=== PATIENT | female | born 1955 | race Caucasian/White ===

== ENCOUNTER → 2018-07-02 | Outpatient (CLI) | payer OTHER ==
[~2018-07-02] MED LIST: BUDESONIDE EC3 MG PO; MACROBID 100 M100 MG PO; PENTASA500 MG PO; QUESTRAN PACKET4 GM PO; RECLAST 55 MG/100 M; TRICOR145 MG PO
== END ==
LOC: RAD 10:34
PROVIDERS: ATTEND Internal Medicine Medical Oncology
DX: R22.42 Localized swelling, mass and lump, left lower limb (principal); R10.2 Pelvic and perineal pain; I82.412 Acute embolism and thrombosis of left femoral vein; I82.432 Acute embolism and thrombosis of left popliteal vein; I82.442 Acute embolism and thrombosis of left tibial vein
CPT/HCPCS: 93971

== ENCOUNTER 2018-07-18 21:10 | Emergency (ER) | payer OTHER ==
[~2018-07-18] VITALS: Ht 165.1 cm; Wt 70.3 kg
--- OUTSIDE RECORDS SUMMARY | 2018-07-18 21:13 | XMS REPORT | Clinical Summary ---
Author Author [facility] Organization [facility] Address Unknown Phone Unavailable Care Team Providers Care Information Assurance Analyst Name Role Phone Asked, No Pcp PCP Unavailable Allergies No Known Allergies Medications End Date Status Medication Sig Dispensed Refills Start Date Active fenofibrate (TRICOR) 145 Take 145 mg 0 MG tablet by mouth daily. 07/18/2018 Active ondansetron ODT (ZOFRAN Take 1 tablet 20 tablet 0 ODT) 4 MG disintegrating (4 mg total) 9 tablet by mouth every 8 (eight) hours as needed for nausea for up to 30 days. 06/25/2018 amoxicillin-pot Take 1 tablet 14 tablet 0 clavulanate (AUGMENTIN) by mouth 9 875-125 mg per tablet every 12 (twelve) hours for 7 days. 06/25/2018 dexamethasone (DECADRON) Take 1 tablet 14 tablet 0 4 MG tablet (4 mg total) 9 by mouth 2 (two) times a day with meals for 7 days. 06/25/2018 metroNIDAZOLE (FLAGYL) Take 1 tablet 21 tablet 0 500 MG tablet (500 mg 9 total) by mouth 3 (three) times a day for 7 days. 06/23/2018 acetaminophen-codeine Take 1-2 15 tablet 0 (TYLENOL WITH CODEINE #3) tablets by 9 300-30 mg per tablet mouth every 6 (six) hours as needed for mild pain for up to 5 days. Active Problems Not on file Encounters Care Team Description Date Type Specialty Clemente Singleton DO Crohn's disease of colon without complication (HCC) (Primary Dx) 06/18/2018 Emergency Emergency Medicine after 07/17/2017 Social History Date Tobacco Use Types Packs/Day Years Used Never Smoker Smokeless Tobacco: Never Used Alcohol Use Drinks/Week oz/Week Comments No Alcohol Habits Answer Date Recorded How often do you have a drink containing alcohol? Never 06/18/2018 How many drinks containing alcohol do you have on Not asked a typical day when you are drinking? How often do you have six or more drinks on one Not asked occasion? Sex Assigned at Date Recorded Not on file Industry Job Start Date Occupation Not on file Not on file Not on file Travel End Travel History Travel Start No recent travel history available. Last Filed Vital Signs Time Taken Vital Sign Reading 06/18/2018 5:07 AM CDT Blood Pressure 103/56 06/18/2018 5:07 AM CDT Pulse 74 06/18/2018 2:47 AM CDT Temperature 36.4 C (97.6 F) 06/18/2018 5:07 AM CDT Respiratory Rate 20 06/18/2018 5:07 AM CDT Oxygen Saturation 96% - Inhaled Oxygen - Concentration - Weight - 06/18/2018 2:47 AM CDT Height 170.2 cm (5' 7") - Body Mass Index - Plan of Treatment Health Maintenance Due Date Last Done Comments CERVICAL CANCER SCREENING 1978 BREAST CANCER SCREENING 08/11/2007 COLON CANCER SCREENING 08/11/2007 SHINGLES VACCINES (#1) 08/11/2007 INFLUENZA VACCINE 11/06/2018 Procedures Comments Procedure Name Priority Date/Time Associated Diagnosis CT ABDOMEN PELVIS W STAT 06/18/2018 CONTRAST 6:28 AM CDT ESTIMATED GFR STAT 06/18/2018 4:14 AM CDT CBC WITH PLATELET AND STAT 06/18/2018 DIFFERENTIAL 4:14 AM CDT LIPASE LEVEL STAT 06/18/2018 4:14 AM CDT LACTIC ACID LEVEL, SEPSIS STAT 06/18/2018 - NOW AND REPEAT 2X EVERY 4:14 AM CDT 3 HOURS COMPREHENSIVE METABOLIC STAT 06/18/2018 PANEL 4:14 AM CDT after 07/17/2017 Results * CT Abdomen Pelvis W Contrast (06/18/2018 6:28 AM CDT) Narrative Performed At EXAMINATION:CT ABDOMEN PELVIS W CONTRAST [facility] CLINICAL HISTORY: 62 yearsFemale epigastric abd painvomitingh o Crohn's TECHNIQUE: Multiple axial images of the abdomen and pelvis were obtained following intravenous administration of iodinated contrast. Sagittal and coronal computerized reformatted images were also obtained. CT imaging was performed with iterative reconstruction techniques and/or automated exposure control to reduce radiation dose. COMPARISON:None. IMPRESSION: LUNG BASES: Minimal dependent bibasilar atelectatic changes are present. There are no pleural effusions. ABDOMEN: Liver: No focal abnormality. Gallbladder/Biliary: Status post cholecystectomy. No evidence of intra or extrahepatic biliary ductal dilatation. Spleen: The spleen is not enlarged. Pancreas: The pancreas is unremarkable. Adrenal Glands: The adrenal glands are unremarkable. Kidneys: The kidneys are unremarkable. No mass, hydronephrosis or calculi. Vascular: The abdominal aorta is normal in caliber. The right hepatic artery is replaced to the SMA. Nodes: No enlarged retroperitoneal or mesenteric lymphadenopathy. Bowel: There are a couple of short segments of mucosal hyperenhancement involving the terminal ileum with submucosal edema resulting in a partial small bowel obstruction. The colon is relatively decompressed and without any focal hyperenhancement. A few scattered colonic diverticula are present. Ascites/fluid collections: There is a tiny amount of free fluid in the pelvic cul-de-sac.. PELVIS: There is no evidence of pelvic mass or pelvic lymphadenopathy. The urinary bladder is unremarkable. MUSCULOSKELETAL: No suspicious osseous lesions. SUMMARY: 1.Focal short segment mucosal hyperenhancement and submucosal edema involving the terminal ileum resulting in partial small bowel obstruction consistent with active Crohn's disease. 2.Status post cholecystectomy. [id number] Procedure Note [facility], Radiology Results Incoming - 06/18/2018 6:42 AM CDT EXAMINATION: CT ABDOMEN PELVIS W CONTRAST CLINICAL HISTORY: 62 yearsFemale epigastric abd pain vomiting h o Crohn's TECHNIQUE: Multiple axial images of the abdomen and pelvis were obtained following intravenous administration of iodinated contrast. Sagittal and coronal computerized reformatted images were also obtained. CT imaging was performed with iterative reconstruction techniques and/or automated exposure control to reduce radiation dose. COMPARISON: None. IMPRESSION: LUNG BASES: Minimal dependent bibasilar atelectatic changes are present. There are no pleural effusions. ABDOMEN: Liver: No focal abnormality. Gallbladder/Biliary: Status post cholecystectomy. No evidence of intra or extrahepatic biliary ductal dilatation. Spleen: The spleen is not enlarged. Pancreas: The pancreas is unremarkable. Adrenal Glands: The adrenal glands are unremarkable. Kidneys: The kidneys are unremarkable. No mass, hydronephrosis or calculi. Vascular: The abdominal aorta is normal in caliber. The right hepatic artery is replaced to the SMA. Nodes: No enlarged retroperitoneal or mesenteric lymphadenopathy. Bowel: There are a couple of short segments of mucosal hyperenhancement involving the terminal ileum with submucosal edema resulting in a partial small bowel obstruction. The colon is relatively decompressed and without any focal hyperenhancement. A few scattered colonic diverticula are present. Ascites/fluid collections: There is a tiny amount of free fluid in the pelvic cul-de-sac.. PELVIS: There is no evidence of pelvic mass or pelvic lymphadenopathy. The urinary bladder is unremarkable. MUSCULOSKELETAL: No suspicious osseous lesions. SUMMARY: 1. Focal short segment mucosal hyperenhancement and submucosal edema involving the terminal ileum resulting in partial small bowel obstruction consistent with active Crohn's disease. 2. Status post cholecystectomy. [id number] Performing Organization Address [facility] [place] [address] * Estimated GFR (06/18/2018 4:14 AM CDT) Estimated GFR >=90 mL/min/1.73 m2 [facility] Comment: HOSPITAL CatergoryUnitsInte rpretation G1 >=90 Normal or high G2 60-89Mildly decreased [id number] Mildly to moderately decreased [id number] Moderately to severely decreased G4 15-29Severely decreased G5 <15Kidney failure The eGFR was calculated using the Chronic Kidney Disease Epidemiology Collaboration (CKD-EPI) equation. Interpretation is based on recommendations of the National Kidney Foundation-Kidney Disease Outcomes Quality Initiative (NKF-KDOQI) published in 2014. Specimen Plasma specimen Performing Organization Address [facility] [place] [address] PATHOLOGY AND GENOMIC MEDICINE [address] * Lactic acid level, SEPSIS - Now and repeat 2x every 3 hours (06/18/2018 4:14 AM CDT) Lactic acid 1.1 0.5 - 2.2 mmol/L [facility] Specimen Plasma specimen Performing Organization Address [facility] Phone Number [address] [address] PATHOLOGY AND GENOMIC MEDICINE [address] * CBC with platelet and differential (06/18/2018 4:14 AM CDT) WBC 9.49 4.50 - 11.00 k/uL [facility] RBC 4.47 4.20 - 5.50 m/uL [facility] HGB 12.9 12.0 - 16.0 g/dL [facility] HCT 40.9 37.0 - 47.0 % [facility] MCV 91.5 82.0 - 100.0 fL [facility] MCH 28.9 27.0 - 34.0 pg [facility] MCHC 31.5 31.0 - 37.0 g/dL [facility] RDW - SD 50.6 37.0 - 55.0 fL [facility] MPV 9.8 8.8 - 13.2 fL [facility] Platelet count 419 (H) 150 - 400 k/uL [facility] Nucleated RBC 0.00 /100 WBC [facility] Neutrophils 82.0 (H) 39.0 - 69.0 % [facility] Lymphocytes 12.4 (L) 25.0 - 45.0 % [facility] Monocytes 4.7 0.0 - 10.0 % [facility] Eosinophils 0.3 0.0 - 5.0 % [facility] Basophils 0.3 0.0 - 1.0 % [facility] Immature granulocytes 0.3Comment: "Immature 0.0 - 1.0 % [facility] granulocytes" (promyelocytes, HOSPITAL myelocytes, metamyelocytes) Specimen Blood Performing Organization Address City/[facility]/Zipcode Phone Number [place] [address] PATHOLOGY AND GENOMIC MEDICINE [address] * Lipase level (06/18/2018 4:14 AM CDT) Lipase 33 13 - 60 U/L [facility] Specimen Plasma specimen Performing Organization Address City/[facility]/[place] [address] PATHOLOGY AND GENOMIC MEDICINE [address] * Comprehensive metabolic panel (06/18/2018 4:14 AM CDT) Sodium 141 135 - 148 mEq/L [facility] Potassium 3.6 3.5 - 5.0 mEq/L [facility] Chloride 100 98 - 112 mEq/L [facility] CO2 26 24 - 31 mEq/L [facility] Anion gap 15@ANIO 7 - 15 mEq/L [facility] BUN 11 8 - 23 mg/dL [facility] Creatinine 0.57 0.50 - 0.90 mg/dL [facility] Glucose 113 (H) 65 - 99 mg/dL [facility] Calcium 9.9 8.8 - 10.2 mg/dL [facility] Protein 7.6 6.3 - 8.3 g/dL [facility] Comment: HOSPITAL [place] 4.6-7.0 g/dL 1 week 4.4-7.6 g/dL 7 months-1year 5.1-7.3 g/dL 1-2 years5.6-7 .5 g/dL >3 years6.0-8 .0 g/dL 18-150 6.3-8.3 g/dL Albumin 4.2 3.5 - 5.0 g/dL [facility] A/G ratio 1.2 0.7 - 3.8 [facility] Alkaline phosphatase 44 35 - 104 U/L [facility] AST 23 10 - 35 U/L [facility] ALT 12 5 - 50 U/L [facility] Total bilirubin 0.3 0.0 - 1.2 mg/dL [facility] Specimen Plasma specimen Performing Organization Address City/State/Zipcode Phone Number [facility] [address] [place] [address] PATHOLOGY AND [place] [address] HOSPITAL after 07/17/2017 Insurance Payer Benefit Subscriber ID Type Phone Address Plan / Group AETNA AETNA xxxxxxxxxx HMO HMO,POS,EP O, MC/EC Advance Directives Patient has advance care planning documents on file. For more information, pleas e contact: Gabo Bae [address] [facility] [place] [address]
--- OUTSIDE RECORDS SUMMARY | 2018-07-18 21:14 | XMS REPORT ---
Author Author [facility] Address Unknown Phone Unavailable Care Team Providers Care Orchid Hand Name Role Phone JENN NEVES Unavailable Unavailable Davy OLIVEIRA Unavailable Unavailable Payers Payer Name Policy Type Policy Number Effective Date Expiration Date Problems This patient has no known problems. Allergies, Adverse Reactions, Alerts Allergy Name Allergy Type Status Severity Reaction(s) Onset Date Inactive Date Treating Clinician Comments IODINE CONTRAST DA Active U 2004-09-12 00:00:00 No Known Drug Allergies DA Active U 2004-09-12 00:00:00 No Known Food Allergies DA Active U 2004-09-12 00:00:00 No Known Other Allergies DA Active U 2004-09-12 00:00:00 Medications This patient has no known medications. Results Test Description Test Time Test Comments Text Results Atomic Results Result Comments TISSUE EXAM 2018-04-04 07:25:00 Surgical Pathology Report Case: [id number] Authorizing Provider: Juanjose Neves, Collected: 04/03/2018 0813 Ordering Location: [facility] PERIOPERATIVE Received: 04/03/2018 0903 SERVICES Pathologist: Marisa Mendenhall MD Specimen: Gallbladder A. GALLBLADDER, CHOLECYSTECTOMY: - CHRONIC CHOLECYSTITIS WITH CHOLELITHIASIS - NEGATIVE FOR DYSPLASIA OR MALIGNANCY Signing Pathologist Direct Phone Line: [phone] signed by Marisa Mendenhall MD on 04/04/2018 at 7:25 [id number] of gallbladder without cholecystitis without obstruction.A. Gallbladder.The case was received in one part labeled with the patient's name, Shellie Fischer, date of 1955 and accession number [id number] which corresponds with the accompanying requisition slip. Received fresh without fixative and labeled with the patient's information and "A gallbladder" is a 7.5 x 3.0 x 1.0 cm previously opened lemons-pink to lemons-purple gallbladder with average wall thickness of 0.2 cm. The gallbladder mucosa is velvety and green with yellow stippling. One 1.0 x 0.5 x 0.3 cm green-black spiculated calculus is identified. The cystic duct does not appear obstructed. No lesions or masses are found within the gallbladder. Industrial Tech Instructor sections are submitted in cassettes A1 and A2. The cystic duct margin is inked in black and submitted in cassette A2. SC/bcPerformed. HEMOGLOBIN-STAT LAB 2018-04-03 07:06:00 HEMOGLOBIN (CHRISTINAAKER) (test gofk=[id number]) 12.9 g/dL 12.0-15.0 Please obtain in preopFL, UGI, AIR CONTRAST, WITH SMALL [id number] 16:29:00Reason for Exam:->Crohns DiseaseReason for Exam:->RUQ ABD PainFINAL REPORT History: Crohn's disease Comparison: None Di scussion : A supervisor steno pool image was obtained prior to the procedure. There is a small- moderate amount of colonic stool. Effervescent air crystals as well as thin and thick liquid barium were given to the patient to swallow and the patient swallow ed without any difficulty. Multiple spot images of the esophagus, stomach and du odenum were obtained. There are no esophageal diverticula, ulcerations or masses . There was evidence of gastroesophageal reflux. The stomach is without masses, ulceration or diverticula. The duodenal bulb is within normal limits. There was a transit time of approximately 20 minutes into the large bowel from the small i ntestine. The patient did have an area of significant stricturing identified trino roximately 4 cm in length at the neoterminal ileum. There is a small diverticulu m arising at the level of the stricture. There is no significant small bowel dis tention The total fluoroscopy time was 6.2 minutes. A total of 110 static images were acquired. Impression: 1. Findings consistent with gastroesophageal reflux. 2. Persistent stricture at the neoterminal ileum measuring approximately 4.0 cm in length. There is no evidence of associated small bowel distention/obstructio n. There is a new small outpouching arising from the area of stricturing, possib ly representing a diverticulum. 3. Relatively rapid transit time through the sma ll intestine, a nonspecific finding. Signed: Abner Kooort Verified Date /Time: 05/15/2017 16:29:00 Reading Location: [address] Radiology Reading Ro om U/S, ABDOMINAL, [id number] 09:15:00Reason for Exam:->RUQ Abd painReason for Exam:->Chrons diseaseFINAL REPORT HISTORY : Right upper quadrant abdominal pain COMPARISON : None COMMENT : Complete ultrasound examination of the abdomen was performed. The liver is homogeneously hyperechoic in echo-texture without evidence of a focal mass. There is cholelithiasis. There is no gallbladder wall thickening, pericholecystic fluid or gallbladder sludge. The biliary tract is within normal limits with the common bile duct measuring 4 mm in maximum diameter. The visualized portions of the pancreas are within normal limits. The spleen is normal in size and echo-texture measuring 8.4 cm. The right kidney measures 9.7 x 4.7 x 3.9 cm and the left kidney 11.8 x 5.8 x 4.6 cm in maximum size. There is no evidence of cysts, masses, stones or hydronephrosis. The portal vein measures to a maximum of 1.2 cm in diameter. There is no ascites or pleural effusion. The visualized inferior vena cava, hepatic veins and abdominal aorta are within normal limits. The maximum diameter of the abdominal aorta is 2.4 cm. IMPRESSION : 1. Cholelithiasis. 2. Hepatic steatosis. 3. Slightly small sized right kidney. Signed: Abner Koo MDReport Verified Date/Time: 05/15/2017 09:15:36 Reading Location: [address] Radiology Reading Room UE [id number] 14:14:00Surgical Pathology Report Case: [id number] Authorizing Provider: Maicol Oliveira MD Collected: 05/03/2017 1147 Ordering Location: [facility] Endoscopy Received: 05/03/2017 1357 Services Pathologist: Candie Martinez MD Specimen: Colon Biopsy, Random, RANDOM BX- HISTORY OF CROHN'S DISEASE, R/O DYSPLASIA COLON, RANDOM, BIOPSY: - COLONIC MUCOSA WITH NO SIGNIFICANT PATHOLOGIC ALTERATION - NEGATIVE FOR DYSPLASIA AND MALIGNANCY Signing Pathologist Direct Phone Line: [phone] signed by Candie Martinez MD on 05/06/2017 at 2:14 [id number]'s disease with complications, rule out dysplasiaRandom colon biopsyThe specimen is received in a formalin-filled container and labeled with the patient's information and labeled "random colon biopsy" and consists of multiple fragments of lemons tissue ranging from 0.1 to 0.3 cm, submitted entirely A1. CG/pl Sections show colonic mucosa with preserved crypt architecture. No increase in acute inflammatory cells are seen. No granulomas, viral inclusions or parasites are seen. No dysp lasia or malignancy is identified. [facility], Department of Pathology, [address] [place] [id number], [facility], Department of Pathology, [address] [place] [address], [facility], Department of Pathology, [address] [place] [address],
--- OUTSIDE RECORDS SUMMARY | 2018-07-18 21:14 | XMS REPORT | Clinical Summary ---
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 Active cholestyramine (QUESTRAN) Take 1 packet 0 4 gram PwPk packet by mouth 2 (two) times daily with breakfast and dinner. Active omeprazole (PRILOSEC) 40 Take 40 mg by 0 MG capsule mouth daily. Active FENOFIBRATE Take 145 mg 0 NANOCRYSTALLIZED (TRICOR by mouth ORAL) daily . Active CALCIUM CARBONATE/VITAMIN Take by mouth 0 D3 (CALCIUM 600 + D,3, 2 (two) times ORAL) daily. Active Missing or Non-Formulary Iron infusion 0 Medication weekly x 4 doses. Active budesonide (ENTOCORT EC) Take 6 mg by 0 3 mg 24 hr capsule mouth every morning. 04/10/2018 ondansetron (ZOFRAN-ODT) Take 1 tablet 5 tablet 1 4 MG disintegrating (4 mg total) 8 tablet by mouth every 8 (eight) hours as needed for Nausea for up to 7 days. 04/10/2018 HYDROcodone-acetaminophen Take 1 tablet 30 tablet 0 (NORCO) 5-325 mg per by mouth 8 tablet every 6 (six) hours as needed for Pain for up to 7 days. Max Daily Amount: 4 tablets Active Problems Problem Noted Date Cholelithiasis 04/03/2018 Encounters Care Team Description Date Type Specialty Tiara Kang 04/09/2018 Orders Only Juanjose Neves MD LAPAROSCOPY,CHOLECYSTECTOMY 04/03/2018 Surgery Natanael Berger MD 04/03/2018 Anesthesia Event Juanjose Neves MD Calculus of gallbladder without cholecystitis without obstruction (Primary Dx) 04/03/2018 Hospital Encounter Resource, Oq[facility] Preadmit Phone 03/18/2018 Hospital Pre-Admission Testing Encounter Tiara Kang 02/12/2018 Orders Only after 07/17/2017 Social History Date Tobacco Use Types Packs/Day Years Used Never Smoker Smokeless Tobacco: Never Used Alcohol Use Drinks/Week oz/Week Comments Yes rare Sex Assigned at Date Recorded Not on file Industry Job Start Date Occupation Not on file Not on file Not on file Travel End Travel History Travel Start No recent travel history available. Last Filed Vital Signs Time Taken Vital Sign Reading 04/03/2018 12:50 PM [employer] Blood Pressure 102/57 04/03/2018 12:50 PM [employer] Pulse 74 04/03/2018 12:50 PM [employer] Temperature 36.1 C (97 F) 04/03/2018 12:50 PM [employer] Respiratory Rate 18 04/03/2018 12:50 PM [employer] Oxygen Saturation 97% - Inhaled Oxygen - Concentration 04/03/2018 6:18 AM [employer] Weight 61.1 kg (134 lb 11.2 oz) 04/03/2018 6:18 AM [employer] Height 170.2 cm (5' 7") 04/03/2018 6:18 AM [employer] Body Mass Index 21.1 Plan of Treatment Not on file Procedures Comments Procedure Name Priority Date/Time Associated Diagnosis TISSUE EXAM AP Routine 04/03/2018 8:13 AM [employer] LAPAROSCOPY,CHOLECYSTECTO 04/03/2018 Calculus of gallbladder MY 7:30 AM [employer] without cholecystitis without obstruction HEMOGLOBIN-STAT LAB Routine 04/03/2018 6:40 AM [employer] after 07/17/2017 Results * Tissue Exam (04/03/2018 8:13 AM [employer]) Case Report Surgical Pathology [facility] Case: [id number] Authorizing Provider:Juanjose Neves, Collected: 04/03/201813 Ordering Location: [facility] PERIOPERATIVE Received: 04/03/2018 0903 SERVICES Pathologist: Marisa Mendenhall MD Specimen:Gallbladder DIAGNOSIS A. GALLBLADDER, [facility] CHOLECYSTECTOMY: [facility] - CHRONIC CHOLECYSTITIS WITH CHOLELITHIASIS - NEGATIVE FOR DYSPLASIA OR MALIGNANCY Signing Pathologist Direct Phone Line: [phone] CPT Code(s) [address] [facility] CLINICAL HISTORY Calculus of gallbladder [facility] without cholecystitis without [facility] obstruction. SPECIMEN SOURCE A. Gallbladder. [facility] GROSS DESCRIPTION The case was received in one [facility] part labeled with the [facility] patient's name, Shellie Fischer, date of 1955 and accession number [id number] which corresponds with the accompanying requisition slip. [...] or masses are found within the gallbladder. Board Stacker sections are submitted in cassettes A1 and A2. The cystic duct margin is inked in black and submitted in cassette A2. SC/bc MICROSCOPIC DESCRIPTION Performed. [facility] Specimen Tissue - Gallbladder Performing Organization Address City/[facility] Phone Number [facility] [address] [place] [address] MEDICAL CENTER * Hemoglobin-Stat Lab (04/03/2018 6:40 AM [employer]) Hemoglobin 12.9 12.0 - 15.0 g/dL [facility] Specimen Blood, Arterial Narrative Performed At Please obtain in preop [facility] Performing Organization Address City/State/Zipcode Phone Number [facility] [address] [place] [address] [facility] after 07/17/2017 Insurance Payer Benefit Subscriber ID Type Phone Address Plan / Group [employer] - [employer] C[employer] AET[employer] HMO xxxxxxxxxx HMO/POS POS QPOS Advance Directives For more information, please contact: [facility] [address] [place] [address] Date Inactivated Comments Code Status Date Activated Full Code 04/03/2018 6:27 AM This code status was determined by: Patient
--- NOTE | 2018-07-18 21:59 | Diagnostic Imaging Report ---
EXAMINATION: CHEST SINGLE (PORTABLE) INDICATION: Blood clot 2 weeks ago. Right upper chest pain. Left leg blood clot. COMPARISON: None FINDINGS: AP view TUBES and LINES: None. LUNGS: Lungs are well inflated. Lungs are clear. There is no evidence of pneumonia or pulmonary edema. PLEURA: No pleural effusion or pneumothorax. HEART AND MEDIASTINUM: The cardiomediastinal silhouette is unremarkable. BONES AND SOFT TISSUES: No acute osseous lesion. Soft tissues are unremarkable. UPPER ABDOMEN: No free air under the diaphragm. IMPRESSION: No acute thoracic abnormality. Signed by: Dr. Shahriar Martin M.D. on 07/18/2018 9:56 PM
[2018-07-18 22:45] LABS: BASOPHILS % 0.5 % (0.0-1.0); EOSINOPHILS # (AUTO) 0.2 (0.0-0.4); EOSINOPHILS % 2.4 % (0.0-6.0); HEMATOCRIT 37.3 % (34.2-44.1); HEMOGLOBIN 11.8 g/dL (12.0-16.0); LYMPHOCYTES # (AUTO) 2.4 (1.0-3.2); LYMPHOCYTES % 30.1 % (18.0-39.1); MEAN CORPUSCULAR HEMOGLOBIN 29.2 pg (28-32); MEAN CORPUSCULAR HGB CONC 31.6 g/dL (31-35); MEAN CORPUSCULAR VOLUME 92.3 fL (81-99); MONOCYTES # (AUTO) 0.8 (0.2-0.8); MONOCYTES % 9.7 % (4.4-11.3); NEUTROPHILS # (AUTO) 4.4 (2.1-6.9); NEUTROPHILS % 54.9 % (38.7-80.0); PLATELET COUNT 415 x10e3/uL (140-360); RED BLOOD COUNT 4.04 x10e6/uL (3.6-5.1); RED CELL DISTRIBUTION WIDTH 15.3 % (11.7-14.4)
[2018-07-18 22:48] LABS: BILIRUBIN,URINE NEGATIVE (NEGATIVE); CLARITY,URINE CLEAR (CLEAR); COLOR,URINE YELLOW (YELLOW); KETONES,URINE NEGATIVE (NEGATIVE); LEUKOCYTE ESTERASE ,URINE NEGATIVE (NEGATIVE); NITRITE,URINE NEGATIVE (NEGATIVE); PROTEIN,URINE DIPSTICK NEGATIVE (NEGATIVE); URINE UROBILINOGEN 0.2 mg/dL (0.2 - 1)
[2018-07-18 22:58] LABS: BACTERIA,URINE FEW /HPF; EPITHELIAL CELLS,URINE FEW /LPF; INR 0.82; PARTIAL THROMBOPLASTIN TIME 24.9 seconds (23.8-35.5); PROTHROMBIN TIME 11.8 seconds (11.9-14.5); RBC,URINE 0-5 /HPF (0-5); WBC,URINE (MAN) 0-5 /HPF (0-5)
[2018-07-18 23:09] LABS: ALANINE AMINOTRANSFERASE 10 IU/L (0-55); ALBUMIN 3.1 g/dL (3.5-5.0); ALBUMIN/GLOBULIN RATIO 1.1 (0.8-2.0); ALKALINE PHOSPHATASE 32 IU/L (40-150); ANION GAP 10.8 mmol/L (8-16); BLOOD UREA NITROGEN 11 mg/dL (7-26); BUN/CREATININE RATIO 20 (6-25); CALCIUM 8.9 mg/dL (8.4-10.2); CARBON DIOXIDE 27 mmol/L (22-29); CHLORIDE 106 mmol/L (98-107); CREATINE KINASE 18 IU/L (29-168); CREATININE, SERUM 0.56 mg/dL (0.57-1.11); EST GLOMERULAR FILTRATION RATE > 60 ML/MIN (60-); GLUCOSE 89 mg/dL (74-118); MAGNESIUM 1.9 MG/DL (1.3-2.1); POTASSIUM 3.8 mmol/L (3.5-5.1); SODIUM 140 mmol/L (136-145)
[2018-07-18] MEDS ORDERED: SODIUM CHLORIDE 0.9% 50ML 0 ML ONE (23:18)
[2018-07-18] MEDS ORDERED: IOPAMIDOL 370 MG/ML 200 ML INFUS..BTL INJ ONE (23:19)
[2018-07-18] MEDS ORDERED: SODIUM CHLORIDE 0.9% 50ML 50 ML ONE (23:54)
--- NOTE | 2018-07-19 00:12 | Diagnostic Imaging Report ---
EXAM: CT Chest WITH contrast (PE Protocol) INDICATION: Left lower extremity DVT 2 weeks ago. Now with chest pain. PE protocol COMPARISON: Chest x-ray 07/18/2018. TECHNIQUE: Chest was scanned utilizing a multidetector helical scanner from the lung apex through the level of the diaphragm after administration of IV contrast. Thin section reconstructions were obtained with special concentration on the pulmonary arteries. Coronal and sagittal reformations were obtained. Pulmonary embolism protocol was performed. Sagital and coronal MIP reconstruction images. IV CONTRAST: 100 mL of Isovue 370 COMPLICATIONS: None RADIATION DOSE: Total DLP: 394.35 mGy*cm Estimated effective dose: (DLP x 0.014 x size factor) mSv CTDIvol has been reviewed. It is below the limits set by the Radiation Protocol Committee (RPC). Dose modulation, iterative reconstruction, and/or weight based adjustment of the mA/kV was utilized to reduce the radiation dose to as low as reasonably achievable. FINDINGS: LINES/ TUBES: None. LUNGS AND AIRWAYS: No filling defect is identified within the pulmonary arteries to the segmental level. There is bibasilar atelectasis. Airways are normal. PLEURA: The pleural spaces are clear. HEART AND MEDIASTINUM: The thyroid gland is normal. No mediastinal, hilar or axillary lymphadenopathy. The heart is normal in size. There is no pericardial effusion. . Main pulmonary artery measures 2.6 cm in diameter and the ascending aorta measures 3.2 cm. UPPER ABDOMEN: Unremarkable BONES: The visualized bony thorax is within normal limits. SOFT TISSUES: Unremarkable. IMPRESSION: 1. No pulmonary emboli. 2. Unremarkable chest. Signed by: Dr. Shahriar Martin M.D. on 07/19/2018 12:08 AM
[2018-07-19 01:35] LABS: CREATINE KINASE MB 0.4 ng/mL (0-5.0)
== END 2018-07-19 02:06 | disposition home or self-care (01) ==
LOC: ER 21:10
DX: R07.89 Other chest pain (principal); E78.5 Hyperlipidemia, unspecified; I82.5Z2 Chronic embolism and thrombosis of unspecified deep veins of left distal lower extremity
CPT/HCPCS: 36415; 71045; 71260; 80053; 81001; 82550; 82553; 83735; 84484; 85025; 85610; 85730; 93005; 99284; Q9967

== ENCOUNTER → 2018-11-24 | Outpatient (CLI) | payer OTHER | LOC: RAD 14:42 | PROVIDERS: ATTEND Internal Medicine Medical Oncology | DX: I82.512 Chronic embolism and thrombosis of left femoral vein (principal); R22.42 Localized swelling, mass and lump, left lower limb; R10.2 Pelvic and perineal pain | CPT/HCPCS: 93971 ==

== ENCOUNTER → 2019-03-18 | Outpatient (CLI) | payer OTHER | LOC: RAD 10:08 | PROVIDERS: ATTEND Internal Medicine Hematology & Oncology | DX: I82.512 Chronic embolism and thrombosis of left femoral vein (principal) | CPT/HCPCS: 93971 ==

== ENCOUNTER 2019-12-20 20:03 | Emergency (ER) | payer OTHER ==
[~2019-12-20] VITALS: Ht 165.1 cm; Wt 70.3 kg
[2019-12-20] MEDS ORDERED: DIAZEPAM 5 MG TAB PO SCH (20:30)
[2019-12-20] MEDS ORDERED: HYDROCODONE/APAP 7.5MG-325MG 1 EA TAB PO PRN (20:30)
--- OUTSIDE RECORDS SUMMARY | 2019-12-20 20:34 | XMS REPORT | Continuity of Care Document ---
Author Author [facility] t Organization [facility] Address [address] [place] [address] Phone Unavailable Care Team Providers Care Abrasive Mixer Name Role Phone JIMENA CASTRO DO PCP Arabella GARCIA, Moody Attphys Arabella GARCIA, Moody Attphys Celine GARC[facility], [facility] TORRES, MOODY Attphys Unavailable Davy Oliveira MD Attphys Davy OLIVEIRA Attphys Unavailable Fátima TATE, Lm Rawls Attphys Unavailable Wil OLIVERA Attphys Unavailable JENN PANDEY Attphys Unavailable TORRES, MOODY Admphys Unavailable Davy OLIVEIRA Admphys Unavailable JENN PANDEY Admphys Unavailable Payers Payer Name Policy Type Policy Number Effective Date Expiration Date S rowdy AETNA - MGD CAREAETNA HMO POS [id number]/POS xxxxxx xxxx [facility] Aetna Trs Care [id number] [facility] Problems Condition Name Condition Details Condition Category Status Onset Date Resolution Date Last Treatment Date Treating Clinician Comments Source Crohn disease Crohn disease Disease Active 2019-11-26 00:00:00 [facility] Personal history of immunosupression therapy Personal history of immunosupression therapy Disease Active 2019-11-26 00:00:00 [facility] Immunosuppression due to chronic steroid use Immunosup pression due to chronic steroid use Disease Active 2019-11-26 00:00:00 [facility] Small bowel anastomotic stricture Small bowel anastomotic strict ure Disease Active 2019-11-26 00:00:00 [facility] History of gastrointestinal obstruction History of gastroint estinal obstruction Disease Active 2019-11-26 00:00:00 [facility] Irregular heartbeat Irregular heartbeat Disease [facility] 2019-11[facility]26 [facility] Ch[facility] Cholelithiasis Disease Active 2018-04-03 00:00:00 [facility] Allergies, Adverse Reactions, Alerts Allergy Name Allergy Type Status Severity Reaction(s) Onset Date Inacti ve Date Treating Clinician Comments Source Adhesive Tape Propensity to adverse reactions Active Rash 2019-03-31 00:00:00 [facility] Iodinated Contrast Media Propensity to adverse reactions Active Nausea And Vomiting 2018-03-18 00:00:00 [facility] Metrizamide Propensity to adverse reactions Active Alfonzo sea And Vomiting 2017-06-13 00:00:00 [facility] IODINE CONTRAST DA Active U 2004-09-12 00:00:00 [facility] No Known Drug Allergies DA Active U 2004-09-12 00:00:00 [facility] No Known Food Allergies DA Active U 2004-09-12 00:00:00 [facility] No Known Other Allergies DA Active U 2004-09-12 00:00:00 [facility] Social History Social Habit Start Date Stop Date Quantity Comments Source History SDOH Alcohol Std Drinks [facility] History SDOH Alcohol Binge [facility] Sex Assigned At [facility] Alcohol Comment 2019-03-31 00:00:00 2019-03-31 00:00:00 rarely [facility] Alcohol intake 2018-06-18 00:00:00 2018-06-18 00:00:00 Current non-drinker of alcohol (finding) [facility] History SDOH Alcohol Frequency 2018-06-18 00:00:00 2018-06-18 00:00:0 0 1 [facility] Smoking Status Start Date Stop Date Source Never smoker [facility] Medications Ordered Medication Name Filled Medication Name Start Date Stop Da te Current Medication? Ordering Clinician Indication Dosage Frequency Signature (SIG) Comments Components Source apixaban (ELIQUIS) 5 mg Tab tablet 2019-11-27 00:00:00 2019-12-27 23:59:00 Yes 5mg Q.5D Take 1 tablet ( 5 mg total) by mouth 2 (two) times daily for 30 days. [facility] ciprofloxacin HCl (CIPRO) 500 MG tablet 00:00:00 2019-12-11 23:59:00 No 500mg Take 1 tablet (500 mg total) by mouth every 12 (twelve) hours for 14 days. [facility] metroNIDAZOLE (FLAGYL) 500 MG tablet 2019-11-27 00:00: 00 2019-12-11 23:59:00 No 500mg Take 1 tablet ( 500 mg total) by mouth every 8 (eight) hours for 14 days. [facility] traMADoL (ULTRAM) 50 mg tablet 2019-11-27 00:00:00 2019-12-07 23 :59:00 No 50mg Take 1 tablet (50 mg total) by mouth every 6 (six) hours as needed for Pain (for uncontrolled pain) for up to 10 days. Max Daily Amount: 200 mg [facility] predniSONE (DELTASONE) 5 MG tablet 2019-11-24 12:12:11 Yes 5mg QD Take 5 mg by mouth daily. [facility] Missing or Non-Formulary Medication 2019-11-24 12:11:16 Yes Iron infusion monthly. [facility] apixaban (ELIQUIS) 5 mg Tab tablet 2019-04-06 11:57:56 201 12-18-29 00:00:00 No 5mg Q.5D Take 5 mg by mouth 2 (two) times daily. [facility] fenofibrate (TRICOR) 145 MG tablet 2018-06-18 03:52:53 Yes 145mg QD Take 145 mg by mouth daily. [facility] mesalamine (PENTASA) 500 MG CR capsule 2018-03-18 09:54:49 Yes 1500mg Q.5D Take 1,500 mg by mouth 2 (two) times daily . [facility] FENOFIBRATE NANOCRYSTALLIZED (TRICOR ORAL) 2017-04-30 15:19:06 Yes 145mg QD Take 145 mg by mouth daily . [facility] budesonide (ENTOCORT EC) 3 mg 24 hr capsule 2014-11-22 09:34:26 Yes 6mg QD Take 6 mg by mouth every morning. [facility] CALCIUM CARBONATE/VITAMIN D3 (CALCIUM 600 + D,3, ORAL) 2014-11-19 10:53:41 Yes Q.5D Take by mouth 2 (two) times daily. [facility] cholestyramine (QUESTRAN) 4 gram PwPk packet 2014-11-19 10:53:07 Yes 1{packet} Take 1 packet by mouth 2 (tw o) times daily with breakfast and dinner. [facility] omeprazole (PRILOSEC) 40 MG capsule 2014-11-19 10:53:07 Yes 40mg QD Take 40 mg by mouth daily. [facility] Budesonide (Budesonide Ec) 3 Mg Capdr...er Budesonide (Budesonide Ec) 3 Mg Capdr...er Yes 3 Daily [facility] Cholestyramine (With Sugar) (Questran Packet) 4 Gm Pac ket Cholestyramine (With Sugar) (Questran Packet) 4 Gm Packet Yes 4 T wice A Day [facility] Fenofibrate (Tricor) 145 Mg Tab Fenofibrate (Tricor) 145 Mg Tab Yes 145 Daily [facility] Mesalamine (Pentasa) 500 Mg Capcr Mesalamine (Pentasa) 500 Mg Capcr Yes 1500 Twice A Day [facility] Nitrofurantoin Monohyd/M-Cryst (Macrobid 100 Mg Capsul e) 100 Mg Capsule Nitrofurantoin Monohyd/M-Cryst (Macrobid 100 Mg Capsule) 100 Mg Capsule Yes 100 Twice A Day [facility] Zoledronic Acid/Mannitol&Water (Reclast 5 Mg/100 Ml Solution) 5 Mg/100 Ml Infus..btl Zoledronic Acid/Mannitol&Water (Reclast 5 Mg/100 Ml Solution) 5 Mg/100 Ml Infus..btl Yes [facility] Vital Signs Vital Name Observation Time Observation Value Comments Source Heart rate 2019-11-27 12:59:00 62 /min [facility] Respiratory rate 2019-11-27 12:59:00 18 /min [facility] Oxygen saturation in Arterial blood by Pulse oximetry 11-26 12:59:00 96 /min [facility] Systolic blood pressure 2019-11-27 11:40:00 102 mm[Hg] [facility] Diastolic blood pressure 2019-11-27 11:40:00 50 mm[Hg] [facility] Body temperature 2019-11-27 11:40:00 36.78 Kaylen [facility] Body height 2019-11-26 07:28:00 170.2 cm [facility] Body weight Measured 2019-11-26 07:28:00 59.149 kg [facility] BMI 2019-11-26 07:28:00 20.42 kg/m2 [facility] Procedures Procedure Date / Time Performed Performing Clinician [facility] e RHYTHM STRIP - SCAN 2019-12-01 10:10:44 Provider, Default Scanni ng [facility] TRANSFUSION SERVICE REPORT - SCAN 2019-11-27 18:01:05 Provid er, Default Scanning [facility] BASIC METABOLIC PANEL (7) 2019-11-27 06:23:00 Adin Yusuf [facility] CBC W/PLT COUNT & AUTO DIFFERENTIAL 2019-11-27 06:23:00 Andrea Yusuf [facility] TISSUE EXAM 2019-11-26 10:23:00 Moody Torres [facility] ANESTHESIA SPINAL BLOCK 2019-11-26 09:11:36 BergerNatanael green Shantel [facility] LAPAROSCOPY,COLECTOMY PARTIAL 2019-11-26 08:00:00 Torres, [facility] COMPREHENSIVE METABOLIC PANEL 2019-11-26 07:43:00 Rd Chanelle [facility] PROTHROMBIN TIME/INR 2019-11-26 07:43:00 [facility] 2019-11-26 07:43:00 Rd Chanelle [facility] CBC W/PLT COUNT & AUTO DIFFERENTIAL 2019-11-26 07:43:00 Rd [facility] TYPE AND SCREEN, AUTOMATED 2019-11-26 07:42:00 Chanelle Sultana [facility] POCT-GLUCOSE METER 2019-11-26 07:40:00 Torres, [facility] POCT-CREATININE 2019-04-16 13:12:00 Maicol Oliveira [facility] CT ABDOMEN/PELVIS WITH IV CONTRAST 2019-04-16 12:30:00 Maicol Oliveira [facility] REPORT OF PROCEDURE - ENDOSCOPY URL 2019-04-06 12:09:58 Maicol Oliveira [facility] REPORT OF PROCEDURE - ENDOSCOPY URL 2019-04-06 12:07:04 Maicol Oliveira [facility] TISSUE EXAM 2019-04-06 11:35:00 Maicol Oliveira [facility] UPPER ENDOSCOPY,BIOPSY 2019-04-06 11:00:00 Maicol Oliveira [facility] COLONOSCOPY,BIOPSY 2019-04-06 11:00:00 Maicol Oliveira [facility] Computed tomography of chest with contrast 2018-07-18 00:00:00 SUSI TAYLOR [facility] Plan of Care Planned Activity Planned Date Details Comments Source Future Scheduled Test 2020-01-07 00:00:00 INFLUENZA VACCINE [code = INFLUENZA VACCINE] [facility] Future Scheduled Test 2007-08-11 00:00:00 BREAST CANCER SCRE ENING [code = BREAST CANCER SCREENING] [facility] Future Scheduled Test 2007-08-11 00:00:00 COLONOSCOPY SCREEN ING [code = COLONOSCOPY SCREENING] [facility] Future Scheduled Test 2007-08-11 00:00:00 SHINGLES VACCINES (#1) [code = SHINGLES VACCINES (#1)] [facility] Future Scheduled Test 1978 00:00:00 Screening for odalis gnant neoplasm of cervix (procedure) [code = 744888447] [facility] Encounters Start Date/Time End Date/Time Encounter Type Admission Type [facility] Care Department Encounter ID Source 2019-12-09 09:43:01 2019-12-09 13:07:[address] Torres [facility] [employer] [id number] 2019-09-30 11:07:34 2019-09-30 12:25:47 Office Visit Moody Torres [facility] [employer] [id number] 2018-07-18 21:10:00 2018-07-19 02:06:00 Departed Emergency Room 1 ANNETTE OLIVERA [facility] [id number] [facility] 2018-07-02 10:34:00 2018-07-02 10:34:00 Registered Clinic [facility] [id number] [facility] Results Test Description Test Time Test Comments Results Result Comments Source Tissue Exam 2019-11-27 14:40:00 Test Item Case Report (test code = 104) Surgical Pathology Repor t Case: [id number] Authorizing Provider: Moody Torres MD Collected: 11/26/2019 10:23 AM Ordering Location: [facility] PERIOPERATIVE Received: 11/26/2019 12:00 PM SERVICES Pathologist: Randi Hightower MD Specimen: Ileum, Ileocolic Anastomosis DIAGNOSIS (test code = 3220) [id number]uHArLRhfpjCrLHdvv1XxH1FrXzUhCWczecUkTEHv SinoqmdzGJNcVNP9icEdGRRcNZrfMHQkMLcoGm8saSFgxFhkKhIhOOTvh3zmoxNKgtmprJx6h8wcHVTr DxO3kNAaHPxhR8tinrNvxBIpEYLbVMf5mR79XTBokA 1ejKFmSDmjrnFaVkT8JKzqQBCaMlV0VVYrtFCtEWJfB1vbBLIbGRooXCFyHUzmdXZnQIK1yOwjl8Y4dL WdaVQlcJauYqZzAfRgYCQAt3DvBJp7yRrrW9JmKQZjGpU7uEOmWTVrPAacKUYoFIGzwzA1hX17RSlvej N3qAGiu4Vgl46vg675wK0ngKHmJWJ2RQPbNEXotQVc ZKCsEBQ7JFEkySFvL2c1QmLguVCjP8H0GrUydLEpP1K2DxFouFHxF3U0FsOvtULwMPPkwGReRc7shJGo bRVrnh3olz15UZS6t3JzsBhoGUH6WPA3SfWjZz5feOAjWDSlOK2wZiRyqEHlCZQcek09qDbuDXuseuMo qB4mRtQzPHGocRNiFJCvLT0wqMJoDMCpjA2pnfldGT DaFyUgssjqQUFeuZpijsQbZb0haSqbTLF8GZttV4qroH2yKuZ1FTqgI6hdyX4lAZk3GAxuvEB8SEHkmL 7jGE2fferlf8bjHtIbOS8opqwsb2ccRvMrFI5hvxy2p1bgHzDfGY0krmwjc3lcNcUcENpzGTOsiijpLO Kwl9RfhclxEGRke8JgS4HxyYhfQ37xiJpeZ82oACBu wDfjuY9tnPjioE0fRlYaJhUfJTrepVkdgDAzokecEZqplkLjYMuelsbyWYMuQNlqO0laXpWaXKZodDzm UAfjn2TrUOHhKDPrNySqN43FR24kAU1BKZMXBHpJZIRPW2ZKHMKNZYQUZSYrBA5DWCFMVMTEU49NMJGj NuGBHPWQJO6TXSNSOZHCYf0IP42JZJGeIzUjVJ2zUI fXN8NUOIZKHS7GGRLADWEIQVjTPI3bFBFQUaXSDYJJCDBZR0eMOobUWDQFWUCMM94GL5dKBqxmDMKtRU 4rV3wLW72DUeNAH5ARNyQtQFzIA6PXLDwJATXdU0jKBVYZVAIZTfCHIO4SPjXNXwYgB2SXRuHDUQVTB3 6sPWaJI8YTRCFfmqDcOSEmFKVFAK0RQSLINWimYX4L XFGVRBGQNV4JQRQNIMGFDyuFHNNCAzTWRETFMRQCRC0xgICjJYKbEXJNGPTMHI1FI2miUGOaRW2yP2MC Y1pLQBofNWRLD5jMXxMLCoYZTMXYL1RDY09bQXHISJUYCxUXCDZLTFWUFLfcAYDhFY8aSrJAXRTGHkVt Hl5IQSNFR0NYLGZOQLTJWvKYAUoNE97NCvPZHTImsc ZnHROMVKHiW93LNBRUETiyLVF7r0kpkDHbRIApkGPnEZCnGYnplrDpOONnPofkpvacBGOdKWM7rsEpKH HgGZgqYNGwKXkyIy3sqBAenCofLrAuQHMme9yhnjEDmsierGh6g0vqTVZfQmK8oNXcNUggL1tkhgEeoL YgLIKgMKv9kZ44BLFmbQ7nkEKuAEwwjrHxZfU6LZfr UCUzXkC8UDMthOOgPGYvL8fqNSVoBHwxGKYlFKgrpFHhNYV5bZtnq4G0oJSwsSDzvRvzCjJrVoMxRxDJ a9PtOBx0jLggX0GbLFDlIeP5pWCsCLHqRMiuUDWqXOZeepY2pH88LOmsraC5tPZmb6Vsc74mq432gY4r fZOeHDJ4FNMfCTHqiPQfPFAeGXF7CQOwuENuV5erBQ DpFB6wcviqFLqtSApiJPVwbKF2QCHwfQVvE0YvFSBjGPhmHIRdbuj3TrTsBp1ccYHgkVzeDXnlw0ous9 vwoSYhBwi0OJDzYiUtMtheXPvia4Qwg6cnCAFaxh6zZUH5wRKueCvpf4I2xDWaTXLhrHDxNONzIY4hiE IeJWQprZ7gsoudQKElVrBjdmbnYIPerIuocvHaJt4s nXvhETF5FMozS6sosU0tGtX1RMxjW1qhtU9fGAn4HButWQVxyET0upU0RGUpeXElH2FecB7rZMHhAO7o tzf3k8abJKO3ASugOCZsTtW9qfT4RWEwlJNcQENumUojWKgtc770UNA1CxUoIBMpx7NyF7IzvBqkF76m oZeiD80uFMAgrLkdyX7qcFlqiR2hUsAtIzQhQKfvaY wrSF2wZGAjR6saeIOmXKZmBIDqL6jbIhPsgB4slPtdPQqbxhGzZCVcSlk4XLFgxIGvAWCwZux2HLOoSD DnK94lfjwhLJY1yX1ir4qvo2CwHIfmPAJ1TFJpc67xCUrfdtX5IWjtSz5qJkNtOJP7SNvwLET9mM== COMMENT (test code = 3359) b0rddIVfTVWrrXBcKkWyNVCrGOGip0xhMCEkhDNoUiRyJoQkLaTlBmtbyJOeGDCxAgOop8iau948iKMk y0xkHDLjMxZ4sBDqOPAapCIuN024t6rgy0dbchXnqIV2PAZtNRQ7YUkjxzOnynE3FRxuqISfVwN5RUnj voHiUDaeprSbtxRsKsn3BMZsU255JHM9aMvlr0zeBT F6CLQoFEXfBfDuYs2riONdB413AGEaUWHHAOPtnYs9GYMcgsZybeUhvMROa660A198y9hwOECfylWmlW gJynafp3rmA393ESXdzGKkcyEjKrLyTRKltHXlcKE3IERcJG0nxfqcBfSuGJ8gcwpuRyHqEL4fpub5Yc SbMV4mkuhlNkJxVPqbXOEtdcdvFLXdm7QuluftCW1n C2Icb2X5bG2aoENmURIhsACnYbWjKJUogu0pbJKsQOqhb7EbPPJ8raA8uOJwrARrPMGjYT22Lmvke2Gd FhmcPND3TDEkjgImc5Bjl3uoFoBsxhTqV3wrJ4UaQIItPFHsPFPjXeFceoUre2Bmg8UhkQNugKs5x1ch WXSmHRPdmGkri3hyGFU6NICjW2J7rOJlu3asZUmhWZ XviXQ0zwxsNQovMMSkqdG4lukuNEluANBecTP0folbJFlaLMOoEdH0fvtiTIrwFIScCGK9BEzug971YP J9VWcnSzrfOBbeYTTilrYkicErlFwtZEPfPXQeLIxaKCHfZHrkAHEuRJXsKeHjtQozfHcndH0lZjRgMr GkOJcuCG5cKMSyP2ektQRcCZObNOHdK9njHlOslS0s uThoBAiffjNuRI4mdPZqnXEjeSOoPPKpKeO9wQNyxDU0wNZrzRnwVPqkd2JteemwM5PwsQ3xoqPjeLOh p4WcQIPkXHT3ekQvw939azVmQJKyYuTdkIZvGDEiQ5OxEwGzIUwaHADhQFYdia2aftAcOSUofdltkKzg lsGzy5EdCBStWIDpbCSrpX2jo0PvZ2qfSMbwnDDuY9XnoOMoPjZqhIInkX== CPT Code(s) (test code = 3357) i8ivjBIaGPRxjIJuMiLgZLEeUYUze7sqYCElxKCoSxTiGrVjBlZkRsufkJHfJZXeYnRdt6hvp005gESj o5eeGCUgTwV2kXGlTIFplURpN778x7wvs9neyaLzkWX8KSHeIXQ2OEueukShkeQ2FEtjvVZyEmI5DFap hzLvLGvpuzOvbnVmWph3YQZoN613DTL0mDdby2wwDC P9QDNhBMIcFhVfXd6bpMUvJ942SAWiAHEHJOFigZy9HTQjjtSuriEekEXGl659L701n5xkIRTlaqYhmJ mEwudmu2nuC588UMIjmOGmajGvSoOdPERdeGWyqCR0ZELlNR0pxgitIlStJK0rikrjLjXqMO5zlev1Un BlFY6kowgkWiBgERxbNMGtrcpoOCHdu1WwwwxbJK5m X7Tui7O6aQ1seWNwKSAuaNQkQwPhTEAcar1zkKFeUShrl2DwQOQ0mvW9qSOugSPgBCAoEO72Hfjkc8Dp FurwQIZ8LHNppsQhv1Rjj0ffAwKxdmCpK7kpX7EeKGEcRZFuSPWeDgFvwtYbz4Agk0VinBCjnJo5a8hc FAYbRFMymDidq3vbTCL3RRSoA0G3uIXxu3wnFCbmPE LtxSV5hzteLBemGBLoxeX1hkfzOFnbBSKduHX8gvwjCQtsMWMuZqZ8pmgwRWnyCSFhWMN7PXbap727RR H5FKhmIhbkDBwlJZUvqqZlirAakTzsNUHfRNDnTKlbFZRxMFbiLOTzDFWbXvQmpBtyyLlzhK7qPyHfXg CfMDrdGH5cHOHiS7fyrWChMYYoSUEqC8vzMhObqX2twNzkTKmxcqSgDWj3XcY0BESrsq4= CLINICAL HISTORY (test code = 3356) g3dutGFoNJBaqLCjSjKbZRGxNNCqx7vnPRWyzUZnKjHrXxQvFmPkFjpulAXqFEUcLjJla5yqh425uJZc m6srLTMjSiF5qHIkOUNbfWJiF091z2cpu9nwfdWytVN5XDBzQLW5VVrcabVxraZ1QTgdtJKrSfI2QVti hkDzPDcjriKopyOrFyx1LYNgN537JFI1kHhxj6sbZB V1IDEmEXPeDbPsUo5qmDObP687HYPzWXTLGGFncAw5TUZdfnGrybQlnXBOv401Z854m6odCEMpzmNomT fYpyarj5zvG492IYWnqZNqgdXkLmNcPPLbjVPcoXO0JEXzLU1tjwgiLuUoFV2nezelCdDtXE0npyp6Rs RsAB2rvbhlTqHaEPxbFYQzadzmKHUef8QwgbhzUS2w S7Wgr2U4yO4nuNTjYSMfoYMlSzBcUKVcss9spXPrLXyvh6VkNLX4dvT7jUHdfYCqKSGgYY85Dlegt8Uj YdnoZHJ2BBCqxqOqf1Ott2jiWxSjiiRuU2tmB8ClGUMpPHFkVKQmPwNyqqKlp4Yta3StfTGtfLb7p4lo ZGSfQVJymCovt8deLTW0FCJwK4S8jCVub8qzGAixSY BvhKF9tzytATzsDKLsghA8awpbKOehKDJcxXT6vxpmFCazJXWaAcE0ffemEQrwQTRuSVZ5KIaha649KP Y6MNhqXiuqOZcsDTBrafIyjqAatWcyGTKnZUFnEAnvJSKoWJaoZPZuHJUtLiDnqDqzrIpcpH4pZqScIc MeWSbdWH9wHRDhP7hxxQYkUDLbAAVvD1ymKsJtrF0c mSsjWNheutEgETCoWQ5xOOCeLSmzc6HisnncYASew1ygH1PbCJncAZImBQR6nDBfTYVccEYdnRTixFbt efermE5tiIZweXDvHNIeY3PinOOgpD04OAK7gI5ubLN8ioTooPLcj2PsqGodpirdPLY4 SPECIMEN SOURCE (test code = 3377) h3fvwHGqPLXldUJxRrAhGHThGRXnr8glRZZuoXNjSlWwCiJoGyLzRinciEKrYANhIeWfr7eos700uCHu r9olQPBwYxM6cWLpKKRkvBFgK359QOUvHJqwv9yqn0NeEDQehLMks7S9QRQKbmbmkVh9bNsuO15ui0N8 LeynD7rqTWPsVNUdT3TnLU7jUKRtDcb4TST1YUN5QE AcDYEaJ1MkGM3vDVAjzNVpJOd5e8rgtZapEXCvDWY2f7zjVOsquzEqMZ7kih8tnJo2v0wydtVxWNLdZJ NqjTACIYInN1ZoaUphHe0xcDs1nHrzWvvfXKR0Dto7WJ6hed81vnu6yMdhTKPohcneBaU8HSlfNDYkdz dpNIz5SXgmIRWtoXikPZmiLIMbalgaNFnmECVatYve KKfwVJPgLkvdCOitKRDnBMN6ECnhn267CPF2MRnlp6fau5jurVAqTit9SKTpJjAmKqboCEold4Edg0nx EDPowj2yIAU6eIOugArir4I5jIHySEVhoUCflqAdYHUzNeM8DEzvJX0xqd39JRUdPJX6bb4jpXPhmCmo hfDgdWBkMWgaG9KdTZYsa226ESPaH3QbCUAke7U1au UfReCgBSZkaQS2xyL6IMUiOXe9pNRoelH9myOwnMUjB3iswP65PmEwuNBnF0GgeF52JvPbbFQvY9KbrD 34CbCyhCBbD6DgnV20MnHxfTZxSYGueSWvIo1uxKRxhYLth5WzoUNwQTrtI41vf638TEGybfFqZ2wyhC GubutmhSVmokfhAEobdwY5AGUyJXBkEElwUEMnPRCs CuDluZYvRyCgUeVoyKutaEuhZIqjCoYiMGXgUDaoV0yoXoGyHpYnWJVBqKJoV15gmGAzCO8ouQ8ar8Bk q3eaIFC4 GROSS DESCRIPTION (test code = 3366) y0jhpYJrXRAqvTWeOsBcSBHxXHAtn1zlJPKxxSDtPeEeJgLlZqViIgoqsSKpIQEbQePqy8wtm931hTZs u8lkHBBdIlE0tCZvGYTveVLpX285EFUkSVffo2uuk8FtSNLgeOVtq4R4EEZTpmcdtJm8mCzqK39hn3N6 FwdbT9jiCPEpPGrfCHZiOOskzGNyAJL6MHWuYVQ3AK itnjWzgrJ6TDdvqTWfDqW4TTk7k4ngwXloKCFxSDN1v3pdZPkvwcSdSQ8qtg4nnXx9w8jpdgTnRBZzIQ CpoLNILKNnM8ZclMsrQj7xhUj2bSpaExwsNVG5Uyg6PQ5qad02kri9bMczCXNguheiHvS1FFvmYFKmcg ltEGr8IXupJFJwaKgwILgxGMQbwsxyHVymJYTllTcn MGoiBPEoJwgrCWnnBDJsLHP1NYyyt855AKC9TIcil2oki9ikgOKkHtk2CIMmJlHzJzivILipl2Tgq0xd IRTttp1aFCK6tKUqwEmpx4H6zWTuSDTqqHGogbFqVCLiKpD2CBcuVR4xsp62AFSzATD7pj9vhLHdxDub quImmPLtQLszR2ZiMQHzl998BQObV1PqNNWjh2D0di UxApJcNWYehCL7woQ1IIBeQAz6cPBxccX4ovMalDYgR9wtcU65VcAdsOKpS1NaoL42KgIjpNGtP7CiqW 80UiKpaRLzA0HprA51MeKjpYTbDYJvfSKkZn4prRBulKGhc3FfcTQsLLesC49et882FDAgsnJmN2fhgQ FpblxwbGFpblxmMFxmczIwXHFsXHBsYWluXGYwXGZz [file] Bhcn0= MICROSCOPIC DESCRIPTION (test code = 3371) f9rstSOgIZDjuSOyCbPoEXQhDLOas1ajGITvwCHqNeLaKtYiNzPcXymitTYyXEGrNxBhl8erp236hMUg j8smKKPcJeY4lXZhEKUrjMYfF092z0frz0ngsjSlcIF7JTZmJZR3NFagafMlriJ3SWoluIMhUcT0UTcl jdJbQVerleXgsqNvUxr4QVLvB189YMT0hNbpm0knEL U3BPQxKMHbXhXxBm5ewLRsX294MDEoVLLMEBFjcHs8BSYpcjMwenHhmHANv333Q741n5afAURcnpAmnF gLkemrj6vbF627ZLYmoPBxajFtGsKwQVCkoMWdyAE9AZZxGM2uvgreSnKzON4myybpYzOoDM9nkao2Si PuWJ5ftapoHrHsXPvoSOTsgynsAHSqf4JsjhqeTX5o P0Ijr7T2mD0ujWEmBXCnfBXnTdSvLTYrey4qyEAiGOrlr1RsEXF0wtK9bRSgkFAcVDXvMP53Vjirv8Ue CckyQIW7JRZppbSmx4Unw1egRlAlubUiN6zaV6FjAZMmJBXxPQWeZlGassRqi2Ghy8DidCIutLd4y8de WKOrKTVmwHsim3vwTSZ7MKQtI5S8xTRku3jaUSmoZX TgwEU6xsswKYnmYWTinqB0hkfbZWrpEJZaqCF6lipxJGbkBNVbXzK9ikmgSDjcDASlUFU2BCvzs881BQ T2AVltHmymJDfoZDRusjNgsqMjiNrrXGTnFUXxCWojMJWkGEdeRPHiKHGdFoLdcDvlkUaivT7nUaEeVa PzFYrdHG8sHOImN6xeyIRvEAWkIJLrU7erUbGhsI5okGjuBGvjrdVnKPXHXjTZIz1WFItsDHQ1 [facility] [id number] 14:40:00Surgical Pathology Report Case: [id number] Authorizing Provider: Moody Torres MD Collected: 11/26/2019 10:23 AM Ordering Location: [facility] Received: 11/26/2019 12:00 PM SERVICES Pathologist: Randi Hightower MD Specimen: Ileum, Ileocolic Anastomosis COLON AND SMALL BOWEL, STATUS POST ILEOCOLIC RESECTION, LAPAROSCOPIC RE-DO ILEOCOLECTOMY WITH ILEO-TRANSVERSE COLONIC ANASTOMOSIS: - CHRONIC ACTIVE ILEOCOLITIS WITH ULCERATIONS AND GRANULATION T ISSUE - TRANSMURAL INFLAMMATION AND CRYPT ABSCESS SEEN - ADHESIONS - SURGICAL MARGINS OF RESECTION ARE UNREMARKABLE - NEGATIVE FOR DYSPLASIA OR MALIGNANCY - S EE COMMENT Signing Pathologist Direct Phone Line: [phone] y signed by Randi Hightower MD on 11/27/2019 at 2:40 PMNote is made of the patient's history Crohn's diease. The transmural defects described in the rick brock description could be due to surgical procedure. [id number] diagnosis: Croh n's disease with complication, unspecified gastrointestinal tract locationIleoco lic anatomosisReceived in formalin labeled with the patient's name, accession nu patricia and "ileocolic anastomosis" is a 14.5 cm in length x 2.5-3.5 cm in diameter unoriented portion of bowel, which consists of small bowel and colon that has b een anastomosed together, and have up to 4.0 cm of attached fat. The serosa is p urple-pink, hyperemic, displays creeping fat at the small bowel and multiple adh esions at the colon. The specimen is opened to reveal a 4.0 x 1.5 cm area of fla ttened mucosa at the anastomotic site and small bowel that is 6.0 cm from the sm all bowel margin, and 6.0 cm from the colon margin. A 0.3 x 0.2 cm transmural de fect is also identified at the anastomotic site that is 5.5 cm from the colon ma rgin and 9.0 cm from the small bowel margin. A second 0.2 x 0.2 cm transmural de fect is identified at the small bowel that is 3.2 cm from the small bowel margin , 6.8 cm from the previously mentioned transmural defect, and 11.5 cm from the c olon margin. The remaining uninvolved mucosa is lemons-pink, focally erythematous a nd displays its normal folds. District Supervisor sections are submitted as follows: Section code:A1 - small bowel and colon margins en faceA2-A3 - transmural defect at previous anastomotic siteA4 - transmural defect at small bowelA5-A6 - flatte mraie mucosa A7 - uninvolved small bowelA8 - uninvolved colon PA/pl PERFORMEDBasic Metabolic Panel- POD 1 & POD 10:17:00* Test Item Value Reference Range Interpretation Comments Sodium (test code = 2951-2) 139 meq/L 136-145 Potassium (test code = 2823-3) 3.8 meq/L 3.5-5.1 Chloride (test code = 2075-0) 105 meq/L 98-107 CO2 (test code = 8-9) 24 meq/L 22-29 BUN (test code = 3094-0) 16 mg/dL 7-21 Creatinine (test code = 2160-0) 0.68 mg/dL 0.57-1.25 Glucose (test code = 2345-7) 98 mg/dL 70-105 Calcium (test code = 39063-0) 8.2 mg/dL 8.4-10.2 L EGFR (test code = 46443-8) 88 mL/min/1.73 sq m ESTIMATED GFR IS NOT ACCURATE CREATININE CLEARANCE IN PREDICTING GLOMERULAR FILTRATION RATE. ESTIMATED GFR IS NOT APPLICABLE FOR DIALYSIS PATIENTS. NIKI (test code = NIKI) Patent Prosecution Paralegal ID - [id number] Lab Interpretation (test code = 19411-2) [facility]normal [facility] MET[facility]OLIC [id number] 10:17:00* Test Item Value Reference Range Interpretation Comments SODIUM (BEAKER) (test code = 381) 139 meq/L 136-145 POTASSIUM (BEAKER) (test code = 379) 3.8 meq/L 3.5-5.1 CHLORIDE (BEAKER) (test code = 382) 105 meq/L 98-107 CO2 (BEAKER) (test code = 355) 24 meq/L 22-29 BLOOD UREA NITROGEN (BEAKER) (test code = 354) 16 mg/dL 7-21 CREATININE (BEAKER) (test code = 358) 0.68 mg/dL 0.57-1.25 GLUCOSE RANDOM (BEAKER) (test code = 652) 98 mg/dL 70-105 CALCIUM (BEAKER) (test code = 697) 8.2 mg/dL 8.4-10.2 L EGFR (BEAKER) (test code = 1092) 88 mL/min/1.73 sq m ESTIMATED GFR IS NOT ACCURATE CREATININE CLEARANCE IN PREDICTING GLOMERULAR FILTRATION RATE. ESTIMATED GFR IS NOT APPLICABLE FOR DIALYSIS PATIENTS. Patent Prosecution Paralegal ID - [id number] with platelet count + automated [id number] 07:22:00* Test Item Value Reference Range Interpretation Comments WBC (test code = 6690-2) 8.7 3.5- 10.5 K/L RBC (test code = 789-8) 3.74 3.93- 5.22 M/L L MCHC (test code = 786-4) 30.7 32.2- 35.5 GM/DL L Discordant result compared to previous, clinical correlation required. Hematocrit (test code = 4544-3) 36.1 % 34.1-44.9 MCV (test code = 787-2) 96.5 fL 79.4-94.8 H MCH (test code = 785-6) 29.7 pg 25.6-32.2 RDW (test code = 788-0) 13.7 % 11.7-14.4 Platelets (test code = 777-3) 383 150- 450 K/CU MM MPV (test code = 70012-2) 9.5 fL 9.4-12.3 nRBC (test code = 413) 0 0- 0 /100 WBC % Neutros (test code = 429) 71 % % Lymphs (test code = 430) 19 % % Monos (test code = 431) 9 % % Eos (test code = 432) 0 % % Baso (test code = 437) 0 % # Neutros (test code = 670) 6.21 1.56- 6.13 K/L H # Lymphs (test code = 414) 1.66 1.18- 3.74 K/L # Monos (test code = 415) 0.79 0.24- 0.36 K/L H # Eos (test code = 416) 0.01 0.04- 0.36 K/L L # Baso (test code = 417) 0.01 0.01- 0.08 K/L Immature Granulocytes-Relative (test code = 2801) 1 % 0-1 Lab Interpretation (test code = 09134-2) Abnormal [facility] W/PLT COUNT & AUTO [id number] 07:22:00* Test Item Value Reference Range Interpretation Comments WHITE BLOOD CELL COUNT (BEAKER) (test code = 775) 8.7 K/ L 3.5- 10.5 RED BLOOD CELL COUNT (BEAKER) (test code = 761) 3.74 M/ L 3.93-5 .22 L HEMOGLOBIN (BEAKER) (test code = 410) 11.1 GM/DL 11.2-15.7 L Discordant result compared to previous, clinical correlation required. HEMATOCRIT (BEAKER) (test code = 411) 36.1 % 34.1-44.9 MEAN CORPUSCULAR VOLUME (BEAKER) (test code = 753) 96.5 fL 79. 4-94.8 H MEAN CORPUSCULAR HEMOGLOBIN (BEAKER) (test code = 751) 29.7 pg 25.6-32.2 MEAN CORPUSCULAR HEMOGLOBIN CONC (BEAKER) (test code = 752) 30.7 GM/DL 32.2-35.5 L RED CELL DISTRIBUTION WIDTH (BEAKER) (test code = 412) 13.7 % 11.7-14.4 PLATELET COUNT (BEAKER) (test code = 756) 383 K/CU MM 150-450 MEAN PLATELET VOLUME (BEAKER) (test code = 754) 9.5 fL 9.4-12 .3 NUCLEATED RED BLOOD CELLS (BEAKER) (test code = 413) 0 /100 WBC 0 -0 NEUTROPHILS RELATIVE PERCENT (BEAKER) (test code = 429) 71 % LYMPHOCYTES RELATIVE PERCENT (BEAKER) (test code = 430) 19 % MONOCYTES RELATIVE PERCENT (BEAKER) (test code = 431) 9 % EOSINOPHILS RELATIVE PERCENT (BEAKER) (test code = 432) 0 % BASOPHILS RELATIVE PERCENT (BEAKER) (test code = 437) 0 % NEUTROPHILS ABSOLUTE COUNT (BEAKER) (test code = 670) 6.21 K/ L 1.56-6.13 H LYMPHOCYTES ABSOLUTE COUNT (BEAKER) (test code = 414) 1.66 K/ L 1.18-3.74 MONOCYTES ABSOLUTE COUNT (BEAKER) (test code = 415) 0.79 K/ L 0. 24-0.36 H EOSINOPHILS ABSOLUTE COUNT (BEAKER) (test code = 416) 0.01 K/ L 0.04-0.36 L BASOPHILS ABSOLUTE COUNT (BEAKER) (test code = 417) 0.01 K/ L 0. 01-0.08 IMMATURE GRANULOCYTES-RELATIVE PERCENT (BEAKER) (test code = 2801) 1 % 0-1 ANESTHESIA SPINAL [id number] 09:11:36Natanael Berger MD - 11/26/2019 9:11 AM CDTSpinal BlockPatient location during procedure: ORStart time: 11/26/2019 8:33 AMEnd time: 11/26/2019 8:36 AM Procedure Indication: procedure for pain, at surgeon's request and post-op pain managementStaffingAnesthesiologist: Natanael Berger MDPerformed: personally Preanesthetic ChecklistCompleted: patient identified, pre-op evaluation, timeout performed, IV checked, risks and benefits discussed, monitors and equipment checked, anesthesia consent given, prep site dry prior to draping and maximum sterile barriers were used: cap, mask, sterile gown, sterile gloves, and large sterile sheetPrepPrep: chlorhexidine gluconate and isopropyl alcoholProcedures: sterile gloves, surgical mask, surgical hat, sterile technique and prep and sterile drape appliedSpinal BlockPatient position: sittingPatient monitoring: EKG, HR, BP and LiV6Dqaemwlq: midlineNo pictures availableLevel: L3-4Injection technique: singl e-shotlandmark technique and landmark techniqueNeedleNeedle type: Other (whitacr e) Needle gauge: 25 GNeedle Length: 9 cmUsed introducerAssessmentEvents: cerebro spinal fluidpatient tolerated the procedure well and patient had no immediate co mplicationsCHI [facility] HospitalType and screen, vmlncnfxv2681-66-15 08:34:00* Test Item Value Reference Range Interpretation Comments ABO/RH AUTOMATED (BEAKER) (test code = 2260) B NEGATIVE Ab Scrn (test code = 890-4) NEGATIVE [facility] HospitalComprehensive metabolic [id number] 08:13:00* Test Item Value Reference Range Interpretation Comments Protein, Total (test code = 2885-2) 8.4 6.0- 8.3 gm/dL H Specimen slightly hemolyzed Albumin (test code = 03657-8) 4.8 g/dL 3.5-5 Specimen slightly hemolyzed Alkaline Phosphatase (test code = 6768-6) 48 U/L 40-150 Total Bilirubin (test code = 1975-2) 0.4 mg/dL 0.2-1.2 Specimen slightly hemolyzed Sodium (test code = 2951-2) 139 meq/L 136-145 Potassium (test code = 2823-3) 3.7 meq/L 3.5-5.1 Specimen slightly hemolyzed Chloride (test code = 2075-0) 100 meq/L 98-107 CO2 (test code = 2027-9) 26 meq/L 22-29 BUN (test code = 3094-0) 15 mg/dL 7-21 Creatinine (test code = 2160-0) 0.76 mg/dL 0.57-1.25 Specimen slightly hemolyzed Glucose (test code = 2345-7) 89 mg/dL 70-105 Calcium (test code = 59946-4) 10.2 mg/dL 8.4-10.2 AST (test code = 1920-8) 46 U/L 5-34 H Spe cimen slightly hemolyzed ALT (test code = 1742-6) 42 U/L 6-55 Spe cimen slightly hemolyzed EGFR (test code = 52449-3) 77 mL/min/1.73 sq m ESTIMATED GFR IS NOT ACCURATE CREATININE CLEARANCE IN PREDICTING GLOMERULAR FILTRATION RATE. ESTIMATED GFR IS NOT APPLICABLE FOR DIALYSIS PATIENTS. NIKI (test code = NIKI) Patent Prosecution Paralegal ID - [id number] Lab Interpretation (test code = 64472-2) Abnormal [facility] HospitalCOMPREHENSIVE METABOLIC [id number] 08:13:00* Test Item Value Reference Range Interpretation Comments TOTAL PROTEIN (BEAKER) (test code = 770) 8.4 gm/dL 6.0-8.3 H Specimen slightly hemolyzed ALBUMIN (BEAKER) (test code = 1145) 4.8 g/dL 3.5-5.0 Specimen slightly hemolyzed ALKALINE PHOSPHATASE (BEAKER) (test code = 346) 48 U/L 40-150 BILIRUBIN TOTAL (BEAKER) (test code = 377) 0.4 mg/dL 0.2-1.2 Specimen slightly hemolyzed SODIUM (BEAKER) (test code = 381) 139 meq/L 136-145 POTASSIUM (BEAKER) (test code = 379) 3.7 meq/L 3.5-5.1 Specimen slightly hemolyzed CHLORIDE (BEAKER) (test code = 382) 100 meq/L 98-107 CO2 (BEAKER) (test code = 355) 26 meq/L 22-29 BLOOD UREA NITROGEN (BEAKER) (test code = 354) 15 mg/dL 7-21 CREATININE (BEAKER) (test code = 358) 0.76 mg/dL 0.57-1.25 Specimen slightly hemolyzed GLUCOSE RANDOM (BEAKER) (test code = 652) 89 mg/dL 70-105 CALCIUM (BEAKER) (test code = 697) 10.2 mg/dL 8.4-10.2 AST (SGOT) (BEAKER) (test code = 353) 46 U/L 5-34 H Specimen slightly hemolyzed ALT (SGPT) (BEAKER) (test code = 347) 42 U/L 6-55 Specimen slightly hemolyzed EGFR (BEAKER) (test code = 1092) 77 mL/min/1.73 sq m ESTIMATED GFR IS NOT ACCURATE CREATININE CLEARANCE IN PREDICTING GLOMERULAR FILTRATION RATE. ESTIMATED GFR IS NOT APPLICABLE FOR DIALYSIS PATIENTS. Patent Prosecution Paralegal ID - [id number] 08:07:00* Test Item Value Reference Range Interpretation Comments PTT (test code = 64864-6) 28.1 22.5- 36.0 seconds Lab Interpretation (test code = 25416-9) [facility] 08:07:[facility]* Test Item Value Reference Range Interpretation Comments PARTIAL THROMBOPLASTIN TIME (AKER) (test code = 760) 28.1 seconds 22.5-36.0 Prothrombin time/[id number] 08:06:00* Test Item Value Reference Range Interpretation Comments Protime (test code = 5902-2) 12.4 11.9- 14.2 seconds INR (test code = 6301-6) 0.95 <=5.90 NIKI (test code = NIKI) Effective 09/03/2018: PT Refe rence Range ChangeNew: 11.9- 14.2 Previous: 11.7-14.7 RECOMMENDED COUMADIN/WARFARIN INR THERAPY RANGESSTANDARD DOSE: 2.0-3.0 Includes: PROPHYLAXIS for venous thrombosis, sys temic embolization; TREATMENT for venous thrombosis and/or pulmonary embolus.HIGH RISK: Target INR is 2.5-3.5 for patients wiht mechanical heart valves. Lab Interpretation (test code = 95696-9) [facility] FranciscoPROTHROMBIN TIME/[id number] 08:06:00* Test Item Value Reference Range Interpretation Comments PROTIME (BEAKER) (test code = 759) 12.4 seconds 11.9-14.2 INR (AKER) (test code = 370) 0.95 <=5.90 Effective 09/03/2018: PT Reference Range ChangeNew: 11.9-14.2 Previous: 11.7-14. 7RECOMMENDED COUMADIN/WARFARIN INR THERAPY RANGESSTANDARD DOSE: 2.0-3.0 Include s: PROPHYLAXIS for venous thrombosis, systemic embolization; TREATMENT for venou s thrombosis and/or pulmonary embolus.HIGH RISK: Target INR is 2.5-3.5 for patie nts wiht mechanical heart valves.CBC W/PLT COUNT & AUTO [id number] 07:58:00* Test Item Value Reference Range Interpretation Comments WHITE BLOOD CELL COUNT (BEAKER) (test code = 775) 6.8 K/ L 3.5- 10.5 RED BLOOD CELL COUNT (BEAKER) (test code = 761) 4.96 M/ L 3.93-5 .22 HEMOGLOBIN (BEAKER) (test code = 410) 14.7 GM/DL 11.2-15.7 HEMATOCRIT (BEAKER) (test code = 411) 46.6 % 34.1-44.9 H MEAN CORPUSCULAR VOLUME (BEAKER) (test code = 753) 94.0 fL 79. 4-94.8 MEAN CORPUSCULAR HEMOGLOBIN (BEAKER) (test code = 751) 29.6 pg 25.6-32.2 MEAN CORPUSCULAR HEMOGLOBIN CONC (BEAKER) (test code = 752) 31.5 GM/DL 32.2-35.5 L RED CELL DISTRIBUTION WIDTH (BEAKER) (test code = 412) 13.7 % 11.7-14.4 PLATELET COUNT (BEAKER) (test code = 756) 451 K/CU MM 150-450 H MEAN PLATELET VOLUME (BEAKER) (test code = 754) 9.6 fL 9.4-12 .3 NUCLEATED RED BLOOD CELLS (BEAKER) (test code = 413) 0 /100 WBC 0 -0 NEUTROPHILS RELATIVE PERCENT (BEAKER) (test code = 429) 69 % LYMPHOCYTES RELATIVE PERCENT (BEAKER) (test code = 430) 22 % MONOCYTES RELATIVE PERCENT (BEAKER) (test code = 431) 7 % EOSINOPHILS RELATIVE PERCENT (BEAKER) (test code = 432) 1 % BASOPHILS RELATIVE PERCENT (BEAKER) (test code = 437) 1 % NEUTROPHILS ABSOLUTE COUNT (BEAKER) (test code = 670) 4.70 K/ L 1.56-6.13 LYMPHOCYTES ABSOLUTE COUNT (BEAKER) (test code = 414) 1.51 K/ L 1.18-3.74 MONOCYTES ABSOLUTE COUNT (BEAKER) (test code = 415) 0.49 K/ L 0. 24-0.36 H EOSINOPHILS ABSOLUTE COUNT (BEAKER) (test code = 416) 0.05 K/ L 0.04-0.36 BASOPHILS ABSOLUTE COUNT (BEAKER) (test code = 417) 0.04 K/ L 0. 01-0.08 IMMATURE GRANULOCYTES-RELATIVE PERCENT (BEAKER) (test code = 2801) 0 % 0-1 POC-Glucose gkret2502-91-53 07:52:00* Test Item Value Reference Range Interpretation Comments POC-Glucose Meter (test code = 1538) 89 mg/dL 70-110 : TESTED AT [place] [id number] [facility], [address]: Patent Prosecution Paralegal/Lead Designer ID = [id number] for PLAIR, TARIQ Lab Interpretation (test code = 71857-6) Normal [facility] HospitalPOCT-GLUCOSE [id number] 07:52:00* Test Item Value Reference Range Interpretation Comments POC-GLUCOSE METER (BEAKER) (test code = 1538) 89 mg/dL 70-110 : TESTED AT [address], [address]: Patent Prosecution Paralegal/Lead Designer ID = [id number] for PLAIR, TARIQ CT, [id number] 10:31:00FINAL REPORT ABDOMINAL AND PELVIS CT DATED 04/17/2019 CLINICAL INFORMATION: k50.00 TECHNIQUE: Axial images of the abdomen and pelvis were obtained from diaphragm to the pubic symphysis with GI and intravenous contrast. This exam was performed according to our departmental dose-optimization program, which includes automated exposure control, adjustment of the mA and/or kV according to patient size and/or use of interactive reconstruction technique. COMMENT: Liver and spleen are normal in size without focal abnormality. Gallbladder is surgically absent. No biliary dilatation is noted. Pancreas and adrenals are unremarkable. Both kidneys are normal in size and functioning. No hydronephrosis, hydroureter, urolithiasis is seen. Wall thickening is seen in the terminal ileum. No small or large bowel dilatation is present. Appendix is not visualized. Uterus and ovaries are unremarkable. The urinary bladder is minimally distended. No mass, adenopathy or ascites is present. IMPRESSION: 1. Wall thickening in the terminal ileum suggestive of inflammatory bowel disease. Please correlate clinically.2. Status post cholecystectomy without biliary dilatation. Signed: Red Barnes MDReport Verified Date/Time: 04/17/2019 10:31:11 Reading Location: [facility] B1 C013Y CT Body Reading Room abdomen/pelvis with IV [id number] 10:31:00Interface, External Ris In - 04/17/2019 10:33 AM CSTFINAL REPORT ABDOMINAL AND PELVIS CT DATED 04/17/2019 CLINICAL INFORMATION: k50.00 TECHNIQUE: Axial images of the abdomen and pelvis were obtained from diaphragm to the pubic symphysis with GI and intravenous contrast. This exam was performed according to our departmental dose-optimization program, which includes automat ed exposure control, adjustment of the mA and/or kV according to patient size an d/or use of interactive reconstruction technique. COMMENT: Liver and spleen are normal in size without focal abnormality. Gallbladder is surgically absent. No biliary dilatation is noted. Pancreas and adrenals are unremarkable. Both kid neys are normal in size and functioning. No hydronephrosis, hydroureter, urolith iasis is seen. Wall thickening is seen in the terminal ileum. No small or large bowel dilatation is present. Appendix is not visualized. Uterus and ovaries are unremarkable. The urinary bladder is minimally distended. No mass, adenopathy or ascites is present. IMPRESSION: 1. Wall thickening in the terminal ileum sugge stive of inflammatory bowel disease. Please correlate clinically.2. Status post cholecystectomy without biliary dilatation. Signed: Red Barnes MDReport Verifie d Date/Time: 04/17/2019 10:31:11 Reading Location: [facility] B1 C013Y CT Body Reading Room [facility]-Owkftfjvom3894-55-05 13:35:00* Test Item Value Reference Range Interpretation Comments POC-Creatinine (test code = 1859) 0.5 mg/dL 0.6-1.[address] [facility] [address] [facility] [address] POC-EGFR (test code = 1860) 125 mL/min/1.73M2 Lab Interpretation (test code = 32089-6) Abnormal [facility] HospitalHilrkvWBIV-GKKBZECQBK4322-94-09 13:35:00* Test Item Value Reference Range Interpretation Comments POC-CREATININE (INDRA) (test code = 1859) 0.5 mg/dL 0.6-1.[address] [facility] [address] [place] [address] POC-EGFR (INDRA) (test code = 1860) 125 mL/min/1.73M2 TISSUE [id number] 08:15:00Surgical Pathology Report Case: [id number] Authorizing Provider: Maicol Oliveira MD Collected: 04/06/2019 1135 Ordering Location: [facility] Endoscopy Received: 04/06/2019 1243 Services Pathologist: Richie Barone MD Specimens: A) - Antrum, BX B) - Colon Biopsy, Random PART A GASTRIC ANTRUM, BIOPSY:ANTRAL AND OXYNTIC MUCOSA WITH FOCALLY ACTIVE CHRONIC GASTRITIS.NEGATIVE FOR INTESTINAL METAPLASIA, DYSPLASIA, OR INVASIVE CARCINOMA.WARTHIN STARRY STAIN FOR HELICOBACTER IS NEGATIVE.PART B RANDOM COLON BIOPSY:NONSPECIFIC MILD COLITIS, FOCALLY IDENTIFIED.NO SIGNIFICANT ARCHITECTURAL DISTORTION.NO ABNORMAL COLLAGEN DEPOSITION OR INCREASED EPITHELIAL LYMPHOCYTES.NO GRANULOMAS, DYSPLASIA, OR INVASIVE CARCINOMA SEEN. Signing Pathologist Direct Phone Line: [phone] signed by Richie Barone MD on 04/07/2019 at 8:15 [id number], [id number] and postop diagnosis: iron deficiency anemia, unspecified iron deficiency anemia type A. Antrum biopsy; B. Colon biopsy, random A. Received in formalin, labeled with the patient's name, accession number and "antrum" are four irregular lemons-soft tissue fragment ranging 0.1-0.3 cm which are submitted in toto in A1. B. Received in formalin labeled with the patient's name, accession number and "colon biopsy, random" are multiple, irregular lemons soft tissue fragments ranging 0.1-0.3 cm which are submitted in toto in B1. CG/pl PERFORMED. The interpretation of this case included the use of immunohistochemistry or special stains.BLOCK A1- WARTHIN STARRYControl Slides Examined: In-house known positive controls were evaluated along with the test tissue. These control slides run alongside of the patients sample show appropriate staining. Internal positive and negative cont rols when available are evaluated Immunohistochemistry technical testing was per formed at [facility], Pathology Laboratory where it was de veloped and its performance characteristics were determined. It has not been [place] ared or approved by the U.S. Food and Drug Administration. The FDA has determine d that such clearance or approval is not necessary. The test is used for clinica l purposes. It should not be regarded as investigational or for research. This l aboratory is certified under the Clinical Laboratory Improvement Amendments of 1 988 (CLIA-88) as qualified to perform high complexity clinical laboratory testin g.[facility], Department of Pathology, [address] [place] [address], [facility], [facility] t of Pathology, [address] [place] [address], [facility], Department of Pathology, [address] [place], [place] [id number], Kazzidhb [employer] [id number] 01:37:00* Test Item Value Reference Range Interpretation Comments Creatine Kinase MB (test code = 91987-6) 0.40 0-5.0 [facility] [id number] 01:37:00* Test Item Value Reference Range Interpretation Comments Troponin I (test code = HWG4899) 0.010 0-0.300 [facility] HospitalCreatine Cnlgrk8574-16-69 01:27:00* Test Item Value Reference Range Interpretation Comments Creatine Kinase (test code = 2157-6) 23 29-168 L [facility] HospitalCT CHEST [id number] 23:54:00 [place] [address] Patient Name: ANNALEE FISCHER MR #: [id number] : 1955 Age/Sex: 62/F Req #: [id number] Adm Physician: Ordered by: SUSI LOPEZ NP Report #: [id number] Location: ER Room/Bed: Procedure: [id number] CT/ CT CHEST W Exam Date: 07/18/18 Exam Time: 2338 REPORT STATUS: Signed EXAM: CT Chest WITH contrast (PE Protocol) INDICATION: Left lower extremity DVT 2 weeks ago. Now with chest pain. PE protocol COMPARISON: Chest x-ray 07/18/2018. TECHNIQUE: Chest was scanned utilizing a multidetector helical scanner from th e lung apex through the level of the diaphragm after administration of IV cont rast. Thin section reconstructions were obtained with special concentration on the pulmonary arteries. Coronal and sagittal reformations were obtained. Pulm onary embolism protocol was performed. Sagital and coronal MIP reconstruction images. IV CONTRAST: 100 mL of Isovue 370 COMPLICATIONS: None R ADIATION DOSE: Total DLP: 394.35 mGy*cm Estimated effective dose: (DLP x 0.014 x size factor) mSv CTDIvol has been reviewed. It is below t he limits set by the Radiation Protocol Committee (RPC). Dose modulatio n, iterative reconstruction, and/or weight based adjustment of the mA/kV was u tilized to reduce the radiation dose to as low as reasonably achievable. FINDINGS: LINES/ TUBES: None. LUNGS AND AIRWAYS: No filling defect is identified within the pulmonary arteries to the segmental level. There is bi basilar atelectasis. Airways are normal. PLEURA: The pleural spaces are clear. HEART AND MEDIASTINUM: The thyroid gland is normal. No mediastinal, hilar or axillary lymphadenopathy. The heart is normal in size. There is no pericardial effusion. . Main pulmonary artery measures 2.6 cm in diameter and the ascending aorta measures 3.2 cm. UPPER ABDOMEN: Unremarkable BONES: The visualized bony thorax is within normal limits. SOFT TISSUES: Unremarkable. IMPRESSION: 1. No pulmonary emboli. 2. Unremarkable ch est. Signed by: Dr. Shahriar Jiang M.D. on 07/19/2018 12:08 AM Dictated By: SHAHRIAR JIANG MD Transcribed By: ABDIFATAH on 07/19/187 COPY TO: SUSI LOPEZ INTERACTIVE ACCOUNT MANAGER Sodium [id number] 23:12:00* Test Item Value Reference Range Interpretation Comments Sodium Level (test code = 2951-2) 140 136-145 [facility] HospitalPotassium Hjdxz4185-90-40 23:12:00* Test Item Value Reference Range Interpretation Comments Potassium Level (test code = 2823-3) 3.8 3.5-5.1 [facility] HospitalChloride Zabhe6125-70-47 23:12:00* Test Item Value Reference Range Interpretation Comments Chloride Level (test code = 2075-0) 106 98-107 [facility] HospitalCarbon Dioxide [id number] 23:12:00* Test Item Value Reference Range Interpretation Comments Carbon Dioxide Level (test code = 2028-9) 27 22-29 [facility] HospitalAnion [id number] 23:12:00* Test Item Value Reference Range Interpretation Comments Anion Gap (test code = 77810-3) 10.8 8-16 [facility] HospitalBlood Urea Klzwilvw1031-21-66 23:12:00* Test Item Value Reference Range Interpretation Comments Blood Urea Nitrogen (test code = 3094-0) 11 7-26 [facility] HospitalCreatinine2019-04-12 23:12:00* Test Item Value Reference Range Interpretation Comments Creatinine (test code = 2160-0) 0.56 0.57-1.11 L [facility] HospitalBUN/Creatinine Mdbks2970-43-75 23:12:00* Test Item Value Reference Range Interpretation Comments BUN/Creatinine Ratio (test code = 3097-3) 20 6-25 [facility] HospitalEstimat Glomerular Filtration Rate 2018-07-18 23:12:00* Test Item Value Reference Range Interpretation Comments Estimat Glomerular Filtration Rate (test code = 452374061) > 60 >60 Ranges were taken from the National Kidney Disease Education Program and the [facility] Hospital[facility] Kidney Foundation literature.Reference ranges:60 or greater: Ncaidh88-19 ( for 3 consecutive months): Chronic kidney disease 15 or less: Kidney failureMetropolitan Methodist HospitalGlucose Cpgmg5089-19-22 23:12:00* Test Item Value Reference Range Interpretation Comments Glucose Level (test code = OBU6634) 89 74-118 [facility] HospitalCalcium Mqbjq9013-63-52 23:12:00* Test Item Value Reference Range Interpretation Comments Calcium Level (test code = 54294-1) 8.9 8.4-10.2 [facility] HospitalMagnesium Xdenf9599-58-92 23:12:00* Test Item Value Reference Range Interpretation Comments Magnesium Level (test code = 92071-2) 1.9 1.3-2.1 [facility] HospitalTotal Ynfsvstup6409-19-13 23:12:00* Test Item Value Reference Range Interpretation Comments Total Bilirubin (test code = 1975-2) 0.3 0.2-1.2 [facility] HospitalAspartate Amino Transf (AST/SGOT) 2018-07-18 23:12:00* Test Item Value Reference Range Interpretation Comments Aspartate Amino Transf (AST/SGOT) (test code = Aspartate Amino Transf (AST/SGOT)) 13 5-34 [facility] HospitalAlanine Aminotransferase (ALT/SGPT) 2018-07-18 23:12:00* Test Item Value Reference Range Interpretation Comments Alanine Aminotransferase (ALT/SGPT) (test code = 1742-6) 10 0-55 [facility] HospitalTotal Zlwkzhw1526-58-60 23:12:00* Test Item Value Reference Range Interpretation Comments Total Protein (test code = 2885-2) 5.9 6.5-8.1 L [facility] HospitalAlbumin2019-04-12 23:12:00* Test Item Value Reference Range Interpretation Comments Albumin (test code = 1751-7) 3.1 3.5-5.0 L [facility] HospitalGlobulin2019-04-12 23:12:00* Test Item Value Reference Range Interpretation Comments Globulin (test code = 88139-0) 2.8 2.3-3.5 [facility] HospitalAlbumin/Globulin Gqwjf9834-88-67 23:12:00 * Test Item Value Reference Range Interpretation Comments Albumin/Globulin Ratio (test code = 1759-0) 1.1 0.8-2.0 [facility] HospitalAlkaline Tihprabceol8539-99-07 23:12:00* Test Item Value Reference Range Interpretation Comments Alkaline Phosphatase (test code = 6768-6) 32 40-150 L [facility] HospitalProthrombin Msna5860-51-42 23:03:00* Test Item Value Reference Range Interpretation Comments Prothrombin Time (test code = 5902-2) 11.8 11.9-14.5 L [facility] HospitalProthromb Time International Ratio 2018-07-18 23:03:00* Test Item Value Reference Range Interpretation Comments Prothromb Time International Ratio (test code = 6301-6) 0.82 Oral Anticoagulant Therapy INR Values:1. Low Intensity Therapy 1.5 - 2.02 . Moderate Intensity Therapy 2.0 - 3.03. High Intensity Therapy(1) 2.5 - 3. 54. High Intensity Therapy(2) 3.0 - 4.05. Panic Value INR > 5.0 [facility] HospitalActivated Partial Thromboplast Time 2018-07-18 23:03:00* Test Item Value Reference Range Interpretation Comments Activated Partial Thromboplast Time (test code = 89644-2) 24.9 23.8-35.5 [facility] HospitalUrine [id number] 22:58:00* Test Item Value Reference Range Interpretation Comments Urine WBC (test code = 5821-4) 0-5 0-5 [facility] HospitalUrine [id number] 22:58:00* Test Item Value Reference Range Interpretation Comments Urine RBC (test code = 74710-4) 0-5 0-5 [facility] Arabuzjz2643-63-03 22:58:00* Test Item Value Reference Range Interpretation Comments Urine Bacteria (test code = 10273-8) FEW NONE [facility] Epithelial Pibfa1911-06-51 22:58:00 * Test Item Value Reference Range Interpretation Comments Urine Epithelial Cells (test code = 64941-4) FEW NONE [facility] Pfnaj5324-94-90 22:48:00* Test Item Value Reference Range Interpretation Comments Urine Color (test code = 5778-6) YELLOW YELLOW [facility] Jpdhyzt6023-09-03 22:48:00* Test Item Value Reference Range Interpretation Comments Urine Clarity (test code = 20861-4) CLEAR CLEAR [facility] Specific Ycruegn3683-27-53 22:48:00 * Test Item Value Reference Range Interpretation Comments Urine Specific [place] (test code = 5811-5) 1.020 1.010-1.02 5 [facility] bP0997-54-42 22:48:00* Test Item Value Reference Range Interpretation Comments Urine pH (test code = 70532-6) 7 5-7 [facility] Leukocyte Slvypeak3483-87-48 22:48:00* Test Item Value Reference Range Interpretation Comments Urine Leukocyte Esterase (test code = 5799-2) NEGATIVE NEGATIVE [facility] Uitiuzb3545-42-67 22:48:00* Test Item Value Reference Range Interpretation Comments Urine Nitrite (test code = 74780-4) NEGATIVE NEGATIVE [facility] Gebnlti2777-37-96 22:48:00* Test Item Value Reference Range Interpretation Comments Urine Protein (test code = 5804-0) NEGATIVE NEGATIVE [facility] Glucose (UA)2018-07-18 22:48:00* Test Item Value Reference Range Interpretation Comments Urine Glucose (UA) (test code = 2349-9) NEGATIVE NEGATIVE [facility] Fymriax1778-40-14 22:48:00* Test Item Value Reference Range Interpretation Comments Urine Ketones (test code = 90013-8) NEGATIVE NEGATIVE [facility] Pxzodesqenna9905-15-63 22:48:00* Test Item Value Reference Range Interpretation Comments Urine Urobilinogen (test code = 95351-2) 0.2 0.2-1 [facility] Lucuwjxgl3869-49-40 22:48:00* Test Item Value Reference Range Interpretation Comments Urine Bilirubin (test code = 1978-6) NEGATIVE NEGATIVE [facility] Qpnil6274-90-32 22:48:00* Test Item Value Reference Range Interpretation Comments Urine Blood (test code = 47728-5) NEGATIVE NEGATIVE [facility] Blood Kzook7947-63-23 22:47:00* Test Item Value Reference Range Interpretation Comments White Blood Count (test code = 6690-2) 8.06 4.8-10.8 [facility] Unxhk5070-35-64 22:47:00* Test Item Value Reference Range Interpretation Comments Red Blood Count (test code = 789-8) 4.04 3.6-5.1 [facility]oglobin2019-04-12 22:47:00* Test Item Value Reference Range Interpretation Comments Hemoglobin (test code = 84616-7) 11.8 12.0-16.0 L [facility]Hematocrit2019-04-12 22:47:00* Test Item Value Reference Range Interpretation Comments Hematocrit (test code = 4544-3) 37.3 34.2-44.1 [facility] HospitalMean Corpuscular Nhgbky2852-87-95 22:47:00* Test Item Value Reference Range Interpretation Comments Mean Corpuscular Volume (test code = 787-2) 92.3 81-99 [facility] Corpuscular Puonbawbac3640-61-33 22:47:00* Test Item Value Reference Range Interpretation Comments Mean Corpuscular Hemoglobin (test code = 785-6) 29.2 28-32 [facility] Corp[facility] Hemoglobin Concent 2018-07-18 22:47:00* Test Item Value Reference Range Interpretation Comments Mean Corpuscular Hemoglobin Concent (test code = 786-4) 31.6 31-35 [facility] Cell Distribution Endtr8138-69-16 22:47:00* Test Item Value Reference Range Interpretation Comments Red Cell Distribution Width (test code = 51069-6) 15.3 11.7 -14.4 H [facility] HospitalPlatelet Csjea4526-67-61 22:47:00* Test Item Value Reference Range Interpretation Comments Platelet Count (test code = 777-3) 415 140-360 H [facility] HospitalNeutrophils (%) (Auto)2018-07-18 22:47:00 * Test Item Value Reference Range Interpretation Comments Neutrophils (%) (Auto) (test code = 44263-3) 54.9 38.7-80.0 [facility] HospitalLymphocytes (%) (Auto)2018-07-18 22:47:00 * Test Item Value Reference Range Interpretation Comments Lymphocytes (%) (Auto) (test code = 736-9) 30.1 18.0-39.1 [facility] (%) (Auto)2018-07-18 22:47:00* Test Item Value Reference Range Interpretation Comments Monocytes (%) (Auto) (test code = 5905-5) 9.7 4.4-11.3 [facility]Eosinophils (%) (Auto)2018-07-18 22:47:00 * Test Item Value Reference Range Interpretation Comments Eosinophils (%) (Auto) (test code = 713-8) 2.4 0.0-6.0 [facility]ophils (%) (Auto)2018-07-18 22:47:00* Test Item Value Reference Range Interpretation Comments Basophils (%) (Auto) (test code = 706-2) 0.5 0.0-1.0 [facility] HospitalIM GRANULOCYTES %2018-07-18 22:47:00* Test Item Value Reference Range Interpretation Comments IM GRANULOCYTES % (test code = IM GRANULOCYTES %) 2.4 0.0- 1.0 H [facility] HospitalNeutrophils # (Auto)2018-07-18 22:47:00* Test Item Value Reference Range Interpretation Comments Neutrophils # (Auto) (test code = 751-8) 4.4 2.1-6.9 [facility] HospitalLymphocytes # (Auto)2018-07-18 22:47:00* Test Item Value Reference Range Interpretation Comments Lymphocytes # (Auto) (test code = 08877-1) 2.4 1.0-3.2 [facility]Monocytes # (Auto)2018-07-18 22:47:00* Test Item Value Reference Range Interpretation Comments Monocytes # (Auto) (test code = 742-7) 0.8 0.2-0.8 [facility] HospitalEosinophils # (Auto)2018-07-18 22:47:00* Test Item Value Reference Range Interpretation Comments Eosinophils # (Auto) (test code = 711-2) 0.2 0.0-0.4 [facility]ophils # (Auto)2018-07-18 22:47:00* Test Item Value Reference Range Interpretation Comments Basophils # (Auto) (test code = 704-7) 0.0 0.0-0.1 [facility] HospitalAbsolute Immature Granulocyte (auto 2018-07-18 22:47:00* Test Item Value Reference Range Interpretation Comments Absolute Immature Granulocyte (auto (david t code = Absolute Immature Granulocyte (auto) 0.19 0-0.1 H [facility] HospitalCHEST SINGLE (PORTABLE)2018-07-18 21:55:00 [place] [address] Patient Name: ANNALEE FISCHER MR #: [id number] : 1955 Age/Sex: 62/F Req #: [id number] Adm Physician: Ordered by: SUSI LOPEZ INTERACTIVE ACCOUNT MANAGER Report #: [id number] Location: ER Room/Bed: Procedure: [id number] DX/ CHEST SINGLE (PORTABLE) Exam Date: 07/18/18 Exam Kev e: 2142 REPORT STATUS: Signed EX AMINATION: CHEST SINGLE (PORTABLE) INDICATION: Blood clot 2 weeks ago. Right upper chest pain. Left leg blood clot. COMPARISON: None FINDINGS: AP view TUBES and LINES: None. LUNGS: Lungs are well inflated. Lungs are clear. There is no evidence of pneumonia or pulmonar y edema. PLEURA: No pleural effusion or pneumothorax. HEART AND MEDIA STINUM: The cardiomediastinal silhouette is unremarkable. BONES AND SO FT TISSUES: No acute osseous lesion. Soft tissues are unremarkable. UPP ER ABDOMEN: No free air under the diaphragm. IMPRESSION: No acute th oracic abnormality. Signed by: Dr. Shahriar Jiang M.D. on 07/18/2018 9:56 PM Dictated By: SHAHRIAR JIANG MD 2 156 Transcribed By: ABDIFATAH on 07/18/182155 COPY TO: SUSI LOPEZ NP TISSUE [id number] 07:25:00Surgical Pathology Report Case: [id number] Authorizing Provider: Juanjose Pandey, Collected: 04/03/2018 0813 Order[address] Location: [facility] PERIOPER[facility] Received: 04/03/2018 0903 SERVICES Pathologist: Marisa Mendenhall MD Specimen: Gallbladder A. GALLBLADDER, CHOLECYSTECTOMY: - CHRONIC CHOLECYSTITIS WITH CHOLELITHIASIS - NEGATIVE FOR DYSPLASIA OR MALIGNANCY Signing Pathologist Direct Phone Line: [phone] signed by Marisa Mendenhall MD on 04/04/2018 at 7:25 [id number] of gallbladder without cholecystitis without obstruction.A. Gallbladder.The case was received in one part labeled with the patient's name, Shellie Fischer, date of 1955 and accession number [id number] which corresponds with the accompanying requisition slip. [...] or masses are found within the gallbladder. District Supervisor sections are submitted in cassettes A1 and A2. The cystic duct margin is inked in black and submitted in cassette A2. SC/bcPerformed.HEMOGLOBIN-STAT [id number] 07:06:00* Test Item Value Reference Range Interpretation Comments HEMOGLOBIN (BEAKER) (test code = 410) 12.9 g/dL 12.0-15.0 Please obtain in preopFL, UGI, AIR CONTRAST, WITH SMALL [id number] 16:29:00Reason for Exam:->Crohns DiseaseReason for Exam:->RUQ ABD PainFINAL REPORT History: Crohn's disease Comparison: None Di scussion : A basket weaver image was obtained prior to the procedure. [...] ll intestine, a nonspecific finding. Signed: Abner Koo MDReport Verified Date /Time: 05/15/2017 16:29:00 Reading Location: [address] Radiology Reading Ro om U/SMARCIE, [id number] 09:15:00Reason for Exam:->RUQ Abd painReason for Exam:->Chrons [...] small sized right kidney. Signed: Abner Koo Verified Date/Time: 05/15/2017 09:15:36 Reading Location: [address] Radiology Reading Room UE [id number] 14:14:00Surgical Pathology Report Case: [id number] Authorizing Provider: Maicol Oliveira MD Collected: 05/03/2017 1147 Ordering Location: [facility] Endoscopy Received: 05/03/2017 1357 Services Pathologist: Candie Martinez MD Specimen: Colon Biopsy, Random, RANDOM BX- HISTORY OF CROHN'S DISEASE, R/O DYSPLASIA COLON, RANDOM, BIOPSY: - COLONIC MUCOSA WITH NO SIGNIFICANT PATHOLOGIC ALTERATION - NEGATIVE FOR DYSPLASIA AND MALIGNANCY Signing Pathologist Direct Phone Line: [phone] signed by Candie Martinez MD on 05/06/2017 at 2:14 [id number]'s disease with complications, rule out dysplasiaRandom colon [...] No dysp lasia or malignancy is identified. [facility], Department of Pathology, [address] [place] [id number], [facility], [facility] of [facility], [address] [place] [id number], [facility], [facility], [address] [place] [address],
--- OUTSIDE RECORDS SUMMARY | 2019-12-20 20:34 | XMS REPORT | Clinical Summary ---
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 Active budesonide (ENTOCORT EC) Take 6 mg by 0 3 mg 24 hr capsule mouth every morning. Active predniSONE (DELTASONE) 5 Take 5 mg by 0 MG tablet mouth daily. 12/27/2019 Active apixaban (ELIQUIS) 5 mg Take 1 tablet 60 tablet 0 Tab tablet (5 mg total) 0 by mouth 2 (two) times daily for 30 days. 04/06/2019 Discontinued apixaban (ELIQUIS) 5 mg Take 5 mg by 0 Tab tablet mouth 2 (two) times daily. 12/11/2019 ciprofloxacin HCl (CIPRO) Take 1 tablet 28 tablet 0 500 MG tablet (500 mg 0 total) by mouth every 12 (twelve) hours for 14 days. 12/11/2019 metroNIDAZOLE (FLAGYL) Take 1 tablet 42 tablet 0 0 500 MG tablet (500 mg 0 total) by mouth every 8 (eight) hours for 14 days. 12/07/2019 traMADoL (ULTRAM) 50 mg Take 1 tablet 30 tablet 0 tablet (50 mg total) 0 by mouth every 6 (six) hours as needed for Pain (for uncontrolled pain) for up to 10 days. 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 History of gastrointestinal obstruction 11/26/2019 Irregular heartbeat 11/26/2019 Cholelithiasis 04/03/2018 Encounters Care Team Description Date Type Specialty Natanael Berger MD 11/26/2019 Anesthesia Event Moody Bell MD LAPAROSCOPY,COLECTOMY PARTIAL 11/26/2019 Surgery Moody Bell MD Crohn's disease of small intestine witho ut complication (HCC) (Primary Dx) 11/26/2019 [facility] General Internal Me dicine - Encounter 11/27/2019 11/26/2019 Travel 11/24/2019 Hospital Pre-Admission Testi ng Encounter 11/24/2019 Travel Maicol Damon MD Crohn's disease of small intestine with complication (HCC) 04/16/2019 Hospital Radiology Encounter Maicol Damon MD Crohn's disease of small intestine with complication (HCC) (Primary Dx) 04/13/2019 Outside Orders [facility] CRNA 04/06/2019 Anesthesia Gastroenterology Event Maicol Damon MD UPPER ENDOSCOPY,BIOPSY 04/06/2019 Surgery Gastroenterology Maicol Damon MD 04/06/2019 Hospital Gastroenterology Encounter 03/31/2019 Hospital Pre-Admission Testi ng Encounter after 12/19/2018 Social History Date Tobacco Use Types Packs/Day Years Used Never Smoker Smokeless Tobacco: Never Used Alcohol Use Drinks/Week oz/Week Comments Yes rarely Sex Assigned at Date Recorded Not on file Industry Job Start Date Occupation Not on file Not on file Not on file Travel End Travel History Travel Start No recent travel history available. Last Filed Vital Signs Time Taken Vital Sign Reading 11/27/2019 11:40 AM CDT Blood Pressure 102/50 11/27/2019 12:59 PM CDT Pulse 62 11/27/2019 11:40 AM CDT Temperature 36.8 C (98.2 F) 11/27/2019 12:59 PM CDT Respiratory Rate 18 11/27/2019 12:59 PM CDT Oxygen Saturation 96% - Inhaled Oxygen - Concentration 11/26/2019 7:28 AM CDT Weight 59.1 kg (130 lb 6.4 oz) 11/26/2019 7:28 AM CDT Height 170.2 cm (5' 7.01") 11/26/2019 7:28 AM CDT Body Mass Index 20.42 Plan of Treatment Not on file Procedures Comments Procedure Name Priority Date/Time Associated Diag nosis RHYTHM STRIP - SCAN 12/01/2019 10:10 AM CDT TRANSFUSION SERVICE 11/27/2019 REPORT - SCAN 6:01 PM CDT CBC W/PLT COUNT & AUTO Routine 11/27/2019 DIFFERENTIAL 6:23 AM CDT CBC W/PLT COUNT & AUTO Routine 11/27/2019 DIFFERENTIAL 6:23 AM CDT BASIC METABOLIC PANEL (7) Routine 11/27/2019 6:23 AM CDT TISSUE EXAM AP Routine 11/26/2019 10:23 AM CDT ANESTHESIA SPINAL BLOCK Routine 11/26/2019 9:11 AM CDT LAPAROSCOPY,COLECTOMY 11/26/2019 Crohn's disease with PARTIAL 8:00 AM CDT complication, unspe cified gastrointestinal tract location (HCC) Special Needs (ERAS PROTOCAL) CHECKED BY Sneha STUBBS CBC W/PLT COUNT & AUTO STAT 11/26/2019 DIFFERENTIAL 7:43 AM CDT APTT STAT 11/26/2019 7:43 AM CDT PROTHROMBIN TIME/INR STAT 11/26/2019 7:43 AM CDT CBC W/PLT COUNT & AUTO STAT 11/26/2019 DIFFERENTIAL 7:43 AM CDT COMPREHENSIVE METABOLIC STAT 11/26/2019 PANEL 7:43 AM CDT TYPE AND SCREEN, STAT 11/26/2019 AUTOMATED 7:42 AM CDT POCT-GLUCOSE METER Routine 11/26/2019 7:40 AM CDT POCT-CREATININE Routine 04/16/2019 1:[address] ABDOMEN/PELVIS WITH IV Routine 04/16/2019 CONTRAST 12:30 PM BELLPERSON REPORT OF PROCEDURE - 04/06/2019 ENDOSCOPY URL 12:09 PM BELLPERSON REPORT OF PROCEDURE - 04/06/2019 ENDOSCOPY URL 12:07 PM BELLPERSON TISSUE EXAM AP Routine 04/06/2019 11:35 AM BELLPERSON COLONOSCOPY,BIOPSY 04/06/2019 Iron deficiency an emia, 11:00 AM BELLPERSON unspecified iron deficiency anemia type UPPER ENDOSCOPY,BIOPSY 04/06/2019 Iron deficienc y anemia, 11:00 AM BELLPERSON unspecified iron deficiency anemia type after 12/19/2018 Results * RHYTHM STRIP - SCAN (12/01/2019 10:10 AM CDT) Narrative Performed At This result has an attachment that is n ot available. * TRANSFUSION SERVICE REPORT - SCAN (11/27/2019 6:01 PM CDT) Narrative Performed At This result has an attachment that is n ot available. * CBC with platelet count + automated diff (11/27/2019 6:23 AM CDT) Only the most recent of 2 results within the time period is included. WBC 8.7 3.5 - 10.5 K/L [facility] RBC 3.74 (L) 3.93 - 5.22 M/L [facility] Hemoglobin 11.1 (L)Comment: Discordant 11.2 - 15.7 GM/DL [facility] result compared to previous, [facility] clinical correlation required. Hematocrit 36.1 34.1 - 44.9 % [facility] MCV 96.5 (H) 79.4 - 94.8 fL [facility] MCH 29.7 25.6 - 32.2 pg [facility] MCHC 30.7 (L) 32.2 - 35.5 GM/DL [facility] RDW 13.7 11.7 - 14.4 % [facility] Platelets 383 150 - 450 K/CU MM [facility] MPV 9.5 9.4 - 12.3 fL [facility] nRBC 0 0 - 0 /100 WBC [facility] % Neutros 71 % [facility] % Lymphs 19 % [facility] % Monos 9 % [facility] % Eos 0 % [facility] % Baso 0 % [facility] # Neutros 6.21 (H) 1.56 - 6.13 K/L [facility] # Lymphs 1.66 1.18 - 3.74 K/L [facility] # Monos 0.79 (H) 0.24 - 0.36 K/L [facility] # Eos 0.01 (L) 0.04 - 0.36 K/L [facility] # Baso 0.01 0.01 - 0.08 K/L [facility] Immature 1 0 - 1 % [facility] Granulocytes-Relative [facility] Specimen Blood Performing Organization Address City/State/Zipcode Ph one Number [address] [facility] * Basic Metabolic Panel- POD 1 & POD 2 (11/27/2019 6:23 AM CDT) Sodium 139 136 - 145 meq/L [facility] Potassium 3.8 3.5 - 5.1 meq/L [facility] Chloride 105 98 - 107 meq/L [facility] CO2 24 22 - 29 meq/L [facility] BUN 16 7 - 21 mg/dL [facility] Creatinine 0.68 0.57 - 1.25 mg/dL [facility] Glucose 98 70 - 105 mg/dL [facility] Calcium 8.2 (L) 8.4 - 10.2 mg/dL [facility] EGFR 88Comment: ESTIMATED GFR IS mL/min/1.73 sq m [facility] NOT ACCURATE CREATININE [facility] CLEARANCE IN PREDICTING GLOMERULAR FILTRATION RATE. ESTIMATED GFR IS NOT APPLICABLE FOR DIALYSIS PATIENTS. Specimen Blood Narrative Performed At Kaiako Kohanga Reo ID - [id number] [facility] Performing Organization Address City/[facility] one [address] [facility] * Tissue Exam (11/26/2019 10:23 AM CDT) Only the most recent of 2 results within the time period is included. Case Report Surgical Pathology [facility] Case: [id number] Authorizing Provider:Moody Bell MDColl ected: 11/26/2019 10:23 AM Ordering [facility] PERI[facility] Received: 11/26/2019 12:00 PM SERVICES Pathologist: Randi Hightower MD Specimen:Ileum, Ileocolic Anastomosis DIAGNOSIS COLON AND SMALL BOWEL, STATUS [facility] POST ILEOCOLIC RESECTION, [facility] LAPAROSCOPIC RE-DO ILEOCOLECTOMY WITH ILEO-TRANSVERSE COLONIC ANASTOMOSIS: - CHRONIC ACTIVE ILEOCOLITIS WITH ULCERATIONS AND GRANULATION TISSUE - TRANSMURAL INFLAMMATION AND CRYPT ABSCESS SEEN - ADHESIONS - SURGICAL MARGINS OF RESECTION ARE UNREMARKABLE - NEGATIVE FOR DYSPLASIA OR MALIGNANCY - SEE COMMENT Signing Pathologist Direct Phone Line: [phone] COMMENT Note is made of the patient's [facility] history Crohn's diease. The [facility] transmural defects described in the gross description could be due to surgical procedure. CPT Code(s) [address] [facility] CLINICAL HISTORY Preop diagnosis: Crohn's [facility] disease with complication, [facility] unspecified gastrointestinal tract location SPECIMEN SOURCE Ileocolic anatomosis [facility] GROSS DESCRIPTION Received in formalin labeled [facility] with the patient's name, [facility] accession number and "ileocolic anastomosis" is a 14.5 cm in length x 2.5-3.5 cm in diameter unoriented portion of bowel, which consists of small bowel and colon that has been anastomosed together, and have up to 4.0 cm of attached fat. The serosa is purple-pink, hyperemic, displays creeping fat at the small bowel and multiple adhesions at the colon. The specimen is opened to reveal a 4.0 x 1.5 cm area of flattened mucosa at the anastomotic site and small bowel that is 6.0 cm from the small bowel margin, and 6.0 cm from the colon margin. A 0.3 x 0.2 cm transmural defect is also identified at the anastomotic site that is 5.5 cm from the colon margin and 9.0 cm from the small bowel margin. A second 0.2 x 0.2 cm transmural defect is identified at the small bowel that is 3.2 cm from the small bowel margin, 6.8 cm from the previously mentioned transmural defect, and 11.5 cm from the colon margin. The remaining uninvolved mucosa is lemons-pink, focally erythematous and displays its normal folds. Certified Hearing Instrument Dispenser sections are submitted as follows: Section code: A1 - small bowel and colon margins en face A2-A3 - transmural defect at previous anastomotic site A4 - transmural defect at small bowel A5-A6 - flattened mucosa A7 - uninvolved small bowel A8 - uninvolved colon PA/pl MICROSCOPIC DESCRIPTION PERFORMED [facility] Specimen Tissue Performing Organization Address City/State/Zipcode Ph one Number [facility] [address] [place], [place] [facility] [facility] * ANESTHESIA SPINAL BLOCK (11/26/2019 9:11 AM CDT) Narrative Performed At Natanael Berger MD 11/26/19 209:12 AM Spinal Block Patient location during procedure: OR Start time: 11/26/2019 8:33 AM End time: 11/26/2019 8:36 AM Procedure Indication: procedure for darrel n, at surgeon's request and post-op pain management Staffing Anesthesiologist: Natanael Berger MD Performed: personally Preanesthetic Checklist Completed: patient identified, pre-op e valuation, timeout performed, IV checked, risks and benefits discussed, monitors and equipment checked, anesthesia consent given, prep site dry prior to draping and maximum sterile barriers were used: cap, mask, sterile gown, sterile gloves, and large sterile sheet Prep Prep: chlorhexidine gluconate and isopr opyl alcohol Procedures: sterile gloves, surgical ma sk, surgical hat, sterile technique and prep and sterile drape applied Spinal Block Patient position: sitting Patient monitoring: EKG, HR, BP and SpO 2 Approach: midlineNo pictures available Level:L3-4 Injection technique: single-shot landmark technique and landmark techniq ue Needle Needle type: Other (reggie) Needle gauge: 25 G Needle Length: 9 cm Used introducer Assessment Events: cerebrospinal fluid patient tolerated the procedure well an d patient had no immediate complications Procedure Note Natanael Berger MD - 11/26/2019 9:11 AM CDT Spinal Block Patient location during procedure: OR Start time: 11/26/2019 8:33 AM End time: 11/26/2019 8:36 AM Procedure Indication: procedure for pain, at surgeon's request and post-op pain management Staffing Anesthesiologist: Natanael Berger MD Performed: personally Preanesthetic Checklist Completed: patient identified, pre-op evaluation, timeout performed, IV checked, risks and benefits discussed, monitors and equipment checked, anesthesia consent given, prep site dry prior to draping and maximum sterile barriers were used: cap, mask, sterile gown, sterile gloves, and large sterile sheet Prep Prep: chlorhexidine gluconate and isopropyl alcohol Procedures: sterile gloves, surgical mask, surgical hat, sterile technique and prep and sterile drape applied Spinal Block Patient position: sitting Patient monitoring: EKG, HR, BP and SpO2 Approach: midlineNo pictures available Level: L3-4 Injection technique: single-shot landmark technique and landmark technique Needle Needle type: Other (reggie) Needle gauge: 25 G Needle Length: 9 cm Used introducer Assessment Events: cerebrospinal fluid patient tolerated the procedure well and patient had no immediate complications * aPTT (11/26/2019 7:43 AM CDT) PTT 28.1 22.5 - 36.0 seconds [facility] Specimen Blood Performing Organization Address [facility] Ph one Number [address] [facility] * Prothrombin time/INR (11/26/2019 7:43 AM CDT) Protime 12.4 11.9 - 14.2 seconds [facility] INR 0.95 <=5.90 [facility] Specimen Blood Narrative Performed At Effective 09/03/2018: PT Reference Range Change [facility] New: 11.9-14.2Previous: 11.7-14.7 [facility] CE NTER RECOMMENDED COUMADIN/WARFARIN INR THERA PY RANGES STANDARD DOSE: 2.0-3.0Includes: PRO PHYLAXIS for venous thrombosis, systemic embolization; TREATMENT for venous thro mbosis and/or pulmonary embolus. HIGH RISK: Target INR is 2.5-3.5 for pa tients wiht mechanical heart valves. Performing Organization Address [facility] Ph one Number [place] [address] [facility] * Comprehensive metabolic panel (11/26/2019 7:43 AM CDT) Protein, Total 8.4 (H)Comment: Specimen 6.0 - 8.3 gm/dL [facility] Albumin 4.8Comment: Specimen slightly 3.5 - 5.0 g/dL [facility] Alkaline Phosphatase 48 40 - 150 U/L [facility] Total Bilirubin 0.4Comment: Specimen slightly 0.2 - 1.2 mg/dL [facility] Sodium 139 136 - 145 meq/L [facility] Potassium 3.7Comment: Specimen slightly 3.5 - 5.1 meq/L [facility] Chloride 100 98 - 107 meq/L [facility] CO2 26 22 - 29 meq/L [facility] BUN 15 7 - 21 mg/dL [facility] Creatinine 0.76Comment: Specimen slightly 0.57 - 1.25 mg/ dL [facility] Glucose 89 70 - 105 mg/dL [facility] Calcium 10.2 8.4 - 10.2 mg/dL [facility] AST 46 (H)Comment: Specimen 5 - 34 U/L [facility] ALT 42Comment: Specimen slightly 6 - 55 U/L [facility] EGFR 77Comment: ESTIMATED GFR IS mL/min/1.73 sq m [facility] NOT ACCURATE CREATININE [facility] CLEARANCE IN PREDICTING GLOMERULAR FILTRATION RATE. ESTIMATED GFR IS NOT APPLICABLE FOR DIALYSIS PATIENTS. Specimen Blood Narrative Performed At Kaiako Kohanga Reo ID - [id number] [facility] Performing Organization Address City/State/Zipcode Ph one Number [facility] [address] [place] [address] [address] [facility] * Type and screen, automated (11/26/2019 7:42 AM CDT) ABO/RH AUTOMATED (BEAKER) B NEGATIVE [facility] Ab Scrn NEGATIVE [facility] Specimen Blood Performing Organization Address [facility] one [address] [address] [phone] [facility] * POC-Glucose meter (11/26/2019 7:40 AM CDT) POC-Glucose Meter 89Comment: : TESTED AT [facility] 70 - 110 mg/dL [address] [address]: Kaiako Kohanga Reo/Documentation Consultant ID = [id number] for [employer] Specimen Blood Performing Organization Address [facility] one [address] [phone] [place] [address] * POC-Creatinine (04/16/2019 1:12 PM BELLPERSON) POC-Creatinine 0.5 (L)Comment: TESTED AT 0.6 - 1.3 mg/dL [address] [address] POC-EGFR 125 mL/min/1.73M2 [facility] Specimen Blood Performing Organization Address [facility]/[address] [phone] [place] [address] * CT abdomen/pelvis with IV contrast (04/16/2019 12:30 PM BELLPERSON) Specimen Narrative Performed At FINAL REPORT Fusion Antibodies ABDOMINAL AND PELVIS CT DATED 04/17/2019 CLINICAL INFORMATION:k50.00 TECHNIQUE:Axial images of the abdom en and pelvis were obtained from diaphragm to the pubic symphysis with G I and intravenous contrast. This exam was performed according to [facility] departmental dose-optimization program, which includ es automated exposure control, adjustment of the mA and/or kV accordin g to patient size and/or use of interactive reconstruction technique . COMMENT: Liver and spleen are normal in size without focal abnormality.Gallbladder is surgical ly absent. No biliary dilatation is noted. Pancreas and adrenals are unremarkable. Both kidneys are normal in size and fun ctioning. No hydronephrosis, hydroureter, urolithiasis is seen. Wall thickening is seen in the terminal ileum. No small or large bowel dilatation is present. Appendix i s not visualized. Uterus and ovaries are unremarkable. Th e urinary bladder is minimally distended. No mass, adenopathy or ascites is prese nt. IMPRESSION: 1. Wall thickening in the terminal ileu m suggestive of inflammatory bowel disease. Please correlate clinica lly. 2. Status post cholecystectomy without biliary dilatation. Signed: Red Barnes MD Report Verified Date/Time: 0 10:31:11 Reading Location: [facility] C013Y CT Body Reading Room Procedure Note Interface, External Ris In - 04/17/2019 10:33 AM BELLPERSON FINAL REPORT ABDOMINAL AND PELVIS CT DATED 04/17/2019 [...] suggestive of inflammatory bowel disease. Please correlate clinically. 2. Status post cholecystectomy without b iliary dilatation. Signed: Red Barnes MD Report Verified Date/Time: 04/17/2019 10:31:11 Reading Location: [facility] C013Y CT Body Reading Room Performing Organization Address City/State/Zipcode Ph one Number [facility] * REPORT OF PROCEDURE - ENDOSCOPY URL (04/06/2019 12:09 PM BELLPERSON) Narrative Performed At This result has an attachment that is n ot available. * REPORT OF PROCEDURE - ENDOSCOPY URL (04/06/2019 12:07 PM BELLPERSON) Narrative Performed At This result has an attachment that is n ot available. after 12/19/2018 Insurance Payer Benefit Subscriber ID Type Phone Address Plan / Group AETNA - MGD CARE AETNA HMO xxxxxxxxxx HMO/POS POS QPOS [id number] Advance Directives For more information, please contact: [facility] [address] [place] [address] Date Inactivated Comments Code Status Date Activated 11/27/2019 5:42 PM Full Code 11/26/2019 6:41 PM This code status was determined by: Patient 11/26/2019 6:41 PM Full Code 11/26/2019 7:16 AM This code status was determined by: Patient 04/06/2019 9:02 AM Full Code 04/03/2018 6:27 AM This code status was determined by: Patient
--- OUTSIDE RECORDS SUMMARY | 2019-12-20 20:34 | XMS REPORT | Clinical Summary ---
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 Active Problems Not on file Social History Date Tobacco Use Types Packs/Day Years Used Never Smoker Smokeless Tobacco: Never Used Drinks/Week oz/Week Comments Alcohol Use No Alcohol Habits Answer Date Recorded How often do you have a drink containing alcohol? Never 06/18/2018 How many drinks containing alcohol do you have on No t asked a typical day when you are drinking? How often do you have six or more drinks on one Not asked occasion? Sex Assigned at Date Recorded Not on file Industry Job Start Date Occupation Not on file Not on file Not on file Travel End Travel History Travel Start No recent travel history available. 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
[2019-12-20] MEDS ORDERED: KETOROLAC TROMETHAMINE 60 MG/2 ML VIAL IM ONE (20:45)
[2019-12-20] MEDS ORDERED: LIDOCAINE 4% PATCH TP SCH (20:45)
--- NOTE | 2019-12-20 21:00 | Emergency Department Note ---
History of Present Illnes History of Present Illness Chief Complaint: Multiple Trauma History of Present Illness This is a 64 year old female arrives to ED with complaints of upper back pain after a fall around 6:30 this evening. Patient denies any LOC to, denies any head trauma. Patient states. Chief Complaint Comment 64 Y/O FEMALE PT AAOX3 PRESENTS TO THE ER C/O BACK PAIN S/P FALL WALKING DOWN THE STAIRS ONSET AROUND 1830 THIS EVENING; PT STATES SHE LOST HER FOOTING AND LANDED ON BACK; REPORTS " I GOT MY BREATH KNOCKED OUT OF ME"; PT DENIES HITTING HEAD OR LOC; REPORTS TAKING BLOOD THINNERS; PT REPORTS TAKING X2 TYLENOL AT 1900; NAD NOTED AT THIS TIME; RESP EVEN/UNLABORED; SKIN WARM, DRY AND WNL FOR PT; V/S/S. Historian: Patient Arrival Mode: Car Onset (how long ago): hour(s) Radiation: Reports back Severity: mild Progression: unchanged Context: Reports trauma/injury Past Medical/Family History Physician Review I have reviewed the patient's past medical and family history. Any updates have been documented here. Past Medical History Recent Fever: No Clinical Suspicion of Infectio: No New/Unexplained Change in Ment: No Past Medical History: Hyperlipedemia, DVT/PE Other Medical History: CHRONS DISEASE DVT X2 Past Surgical History: Cholecysctectomy, Appendectomy, T&A, Tubal Ligation Other Surgery: BOWEL RESECTION Social History Smoking Cessation: Never Smoker Other Last Tetanus: 2013 Review of Systems Review of Systems Constitutional: Reports no symptoms EENTM: Reports no symptoms Cardiovascular: Reports no symptoms Respiratory: Reports no symptoms Gastrointestinal: Reports no symptoms Genitourinary: Reports no symptoms Musculoskeletal: Reports as per HPI, Reports back pain Integumentary: Reports no symptoms Neurological: Reports no symptoms Psychological: Reports no symptoms Endocrine: Reports no symptoms Hematological/Lymphatic: Reports no symptoms Physical Exam Related Data Allergies: Coded Allergies: No Known Allergies (Unverified , 07/27/14) Triage Vital Signs Vital Signs Date Time Temp Pulse Resp B/P (MAP) Pulse Ox O2 Delivery O2 Flow Rate FiO2 12/20/19 20:14 98.9 85 20 108/60 99 Room Air Vital signs reviewed: Yes Physical Exam CONSTITUTIONAL Constitutional: Present well-developed, Present well-nourished HENT HENT: Present normocephalic, Present atraumatic, Present oropharynx clear/moist, Present nose normal HENT L/R: Present left ext ear normal, Present right ext ear normal EYES Eyes: Reports PERRL, Reports conjunctivae normal NECK Neck: Present ROM normal PULMONARY Pulmonary: Present effort normal, Present breath sounds normal CARDIOVASCULAR Cardiovascular: Present regular rhythm, Present heart sounds normal, Present capillary refill normal, Present normal rate GASTROINTESTINAL Abdominal: Present soft, Present nontender, Present bowel sounds normal GENITOURINARY Genitourinary: Present exam deferred SKIN Skin: Present warm, Present dry MUSCULOSKELETAL Musculoskeletal: Present tenderness, Present other (+tenderness over thoracic spine ) NEUROLOGICAL Neurological: Present alert, Present oriented x 3, Present no gross motor or sensory deficits PSYCHOLOGICAL Psychological: Present mood/affect normal, Present judgement normal Results Imaging Imaging results reviewed: Yes Impressions IMPRESSION: 1. Bones are diffusely demineralized. 2. An acute fracture on the superior endplate of T6, which focally extends into the posterior endplate, results in 30% height loss. No retropulsed fragment displaced into the spinal canal. 3. No additional fractures or acute thoracolumbar abnormalities. 4. Cannot adequately assess for spinal cord, vascular or ligamentous injury on these exams. Signed by: Dr. Naveen Mohan M.D. on 12/20/2019 10:01 PM Assessment & Plan Medical Decision Making ELLA 64 F arrived to the ED with complains of back pain after sustaining a mechanical fall. Pt noted to have T6 end plate fracture, no neuro deficit. Pt's pain controlled,pt ambulatory with a steady gait. Outpt Neurosurgery follow up given. Assessment & Plan Final Impression: (1) Thoracic spine fracture Depart Disposition: HOME, SELF-CARE Last Vital Signs Date Time Temp Pulse Resp B/P (MAP) Pulse Ox O2 Delivery O2 Flow Rate FiO2 12/20/19 20:14 98.9 85 20 108/60 99 Room Air Home Meds Active Scripts Lidocaine/Menthol (LIDOPATCH) 1 Each Adh..patch, 1 PATCH TOP DAILY, #14 PATCH Prov:CANDICEHIR, AMBICA, DO 12/20/19 Tramadol Hcl (ULTRAM) 50 Mg Tablet, 50 MG PO Q6HR PRN for MUSCLE SPASMS, #14 TAB Prov:CANDICEHIR, AMBICA, DO 12/20/19 Ketorolac Tromethamine (TORADOL) 10 Mg Tablet, 10 MG PO Q8HR PRN for MUSCLE SPASMS, #14 Prov:FILI AUGUSTINE DO 12/20/19 Reported Medications Nitrofurantoin Monohyd/M-Cryst (MACROBID 100 MG CAPSULE) 100 Mg Capsule, 100 MG PO BID 07/27/14 Zoledronic Acid/Mannitol&Water (RECLAST 5 MG/100 ML SOLUTION) 5 Mg/100 Ml Infus..btl 07/27/14 Budesonide (BUDESONIDE EC) 3 Mg Capdr...er, 3 MG PO DAILY, #30 CAP 07/27/14 Cholestyramine (With Sugar) (QUESTRAN PACKET) 4 Gm Packet, 4 GM PO BID, PACKET 07/27/14 Mesalamine (PENTASA) 500 Mg Capcr, 1500 MG PO BID, CAP 07/27/14 Fenofibrate (TRICOR) 145 Mg Tab, 145 MG PO DAILY, #30 TAB 07/27/14 Medications in the ED Acetaminophen/ Hydrocodone Bitart 1 ea ONCE PRN PO MODERATE PAIN (4-6); Start 12/20/19 at 20:30; Stop 12/27/19 at 20:29; Status UNV Diazepam 5 mg ONCE PO ; Start 12/20/19 at 20:30; Stop 12/27/19 at 20:29; Status UNV FILI AUGUSTINE DO Dec 20, 2019 21:00
--- NOTE | 2019-12-20 22:04 | Diagnostic Imaging Report ---
History: Fall Comparison studies: None Technique:: Axial were obtained through the thoracic and lumbar regions. Coronal and sagittal images reconstructed from the axial data. Dose modulation, iterative reconstruction, and/or weight based adjustment of the mA/kV was utilized to reduce the radiation dose to as low as reasonably achievable. Intravenous contrast: None Findings: Alignment: Normal thoracic kyphosis. Normal lumbar lordosis.. No scoliosis. Soft tissues: Incidental surgical clips in the right upper quadrant. A few scattered atherosclerotic calcified plaque in the aorta. Paraspinal muscles: Unremarkable Spinal cord: Cannot evaluate. Vertebrae: Bones are diffusely demineralized. An acute compression fracture along the superior endplate of C6 focally extends into the posterior endplate (series 601, image 25). No additional fractures, infection or neoplasm . Thoracic degenerative changes: None Lumbar degenerative changes: None Sacroiliac joints: Mildly degenerated bilaterally, mostly vacuum phenomena. IMPRESSION: 1. Bones are diffusely demineralized. 2. An acute fracture on the superior endplate of T6, which focally extends into the posterior endplate, results in 30% height loss. No retropulsed fragment displaced into the spinal canal. 3. No additional fractures or acute thoracolumbar abnormalities. 4. Cannot adequately assess for spinal cord, vascular or ligamentous injury on these exams. Signed by: Dr. Naveen Mohan M.D. on 12/20/2019 10:01 PM
[2019-12-20] MEDS ORDERED: KETOROLAC TROME10 MG PO (22:15)
[2019-12-20] MEDS ORDERED: ULTRAM50 MG PO (22:17)
[2019-12-20] MEDS ORDERED: LIDOPATCH1 EACH TOP (22:17)
--- NOTE | 2019-12-20 22:39 | Diagnostic Imaging Report ---
EXAM: CT Pelvis WITHOUT contrast INDICATION: Fall COMPARISON: None. TECHNIQUE: Pelvis were scanned utilizing a multidetector helical scanner from the iliac crest to the pubic symphysis without administration of IV contrast. Coronal and sagittal reformations were obtained. Routine protocol was performed. IV CONTRAST: None ORAL CONTRAST: None COMPLICATIONS: None RADIATION DOSE: Total DLP: 530 mGy*cm Estimated effective dose: (DLP x 0.015 x size factor) mSv CTDIvol has been reviewed. It is below the limits set by the Radiation Protocol Committee (RPC). Dose modulation, iterative reconstruction, and/or weight based adjustment of the mA/kV was utilized to reduce the radiation dose to as low as reasonably achievable. FINDINGS: LINES and TUBES: None. GI TRACT: No abnormal distention, wall thickening, or evidence of bowel obstruction. Slightly inflamed partially visualized loops of bowel in the right lower quadrant, possibly the cecum/ascending colon. Not well seen. PELVIC ORGANS/BLADDER: Unremarkable. LYMPH NODES: No lymphadenopathy. VESSELS: Unremarkable. PERITONEUM / RETROPERITONEUM: Partially visualized inflammatory changes about a slightly inflamed loop of bowel in the right lower quadrant, possibly the right colon. BONES: Unremarkable. SOFT TISSUES: Unremarkable. IMPRESSION: Partially visualized inflammatory changes in the right lower quadrant, possibly mesenteric contusion or diverticulitis. Recommend CT abdomen pelvis with contrast. Signed by: Simba Power DO on 12/20/2019 10:35 PM
== END 2019-12-20 23:00 | disposition home or self-care (01) ==
LOC: ER 20:32
DX: M54.6 Pain in thoracic spine (principal); S22.050A Wedge compression fracture of T5-T6 vertebra, initial encounter for closed fracture; W10.8XXA Fall (on) (from) other stairs and steps, initial encounter; Y93.01 Activity, walking, marching and hiking; Y92.008 Other place in unspecified non-institutional (private) residence as the place of occurrence of the external cause; E78.5 Hyperlipidemia, unspecified; K50.90 Crohn's disease, unspecified, without complications; Z86.718 Personal history of other venous thrombosis and embolism
CPT/HCPCS: 72128; 72131; 72192; 96372; 99283; J1885

== ENCOUNTER → 2020-03-23 | Outpatient (CLI) | payer OTHER ==
[~2020-03-23] MED LIST changes: +KETOROLAC TROME10 MG PO; +LIDOPATCH1 EACH TOP; +ULTRAM50 MG PO
== END ==
LOC: NM 09:49
PROVIDERS: ATTEND Internal Medicine Medical Oncology
DX: I82.512 Chronic embolism and thrombosis of left femoral vein (principal)
CPT/HCPCS: 78306; A9503; A9570